=== PATIENT | male | born 1950 | race Caucasian/White ===

== ENCOUNTER 2019-06-03 16:19 | Observation (INO) | payer MEDICARE ==
[2019-06-03] MEDS ORDERED: HYDROcodone/Acetaminophen 5/325 mg Tablet PO PRN (18:03)
[2019-06-03] MEDS ORDERED: Acetaminophen 325 MG TAB PO PRN (18:03)
[2019-06-03] MEDS ORDERED: Senokot S 8.6-50 MG TAB PO PRN (18:03)
[2019-06-03 18:31] LABS: Troponin I Less than 0.010 ng/mL (< 0.028)
--- NOTE | 2019-06-03 18:52 | RAD ---
TWO VIEWS CHEST: 06/03/19 HISTORY: Pain. Hematuria. COMPARISON: 06/03/19 at 2:51 p.m. FINDINGS: Normal cardiac silhouette. Pulmonary vessels and hilum are normal. Costophrenic angles are clear. Pat jacob interstitial opacities in the lung parenchyma, without consolidation or mass. Mild hyperinflation . No pneumothorax or osseous abnormalities. IMPRESSION: 1. Previously suggested retrocardiac opacity is not appreciated on the current exam. 2. There is cardiomegaly. 3. Patchy interstitial opacities in the lung parenchyma are noted which may represent chronic ch adelaida. POS: PPP
[2019-06-03 21:23] LABS: Troponin I Less than 0.010 ng/mL (< 0.028)
[2019-06-03 23:05] VITALS: BMI 43.6
[2019-06-03] MEDS: Famotidine 20 MG TAB PO SCH (23:18)
[2019-06-03] MEDS ORDERED: Lorazepam 2 MG/ML VIAL SLOW IVP SCH (23:30)
[2019-06-04] MEDS ORDERED: Melatonin 3 MG TAB PO SCH (01:15)
[2019-06-04 06:18] LABS: #Basophils 0.1 thou/uL (0.0-0.2); #Eosinphils 0.1 thou/uL (0.0-0.7); #Lymphocytes 1.8 thou/uL (1.20-3.40); #Monocytes 0.7 thou/uL (0.11-0.59); #Neutrophils 5.6 thou/uL (1.40-6.50); %Eosinophils 1.7 % (0.0-10.0); %Lymphocytes 21.7 % (21.0-51.0); %Monocytes 8.8 % (0.0-10.0); %Neutrophils 66.8 % (42.0-75.0); Hemoglobin 15.6 g/dL (14.0-18.0); Mean Corpuscular HGB CONC 33.4 g/dL (32.0-36.0); Mean Corpuscular Hemoglobin 30.9 pg (27.0-31.0); Mean Corpuscular Volume 92.7 fL (78.0-98.0); Mean Platelet Volume 7.7 fL (7.4-10.4); Platelet Count 262 thou/uL (130-400); RBC Distribution Width 12.1 % (11.5-14.5); Red Blood Cell (RBC) Count 5.03 mill/uL (4.70-6.10); White Blood Cell (WBC) Count 8.4 thou/uL (4.8-10.8)
[2019-06-04 06:43] LABS: Anion Gap 14 mmol/L (10-20); BUN (Urea Nitrogen) 17 mg/dL (8.4-25.7); Calc. Creatinine Clearance 146 mL/min (70-130); Carbon Dioxide 24 mmol/L (23-31); Cardiac Risk 3.7 (Less than 4.5); Chloride 103 mmol/L (98-107); Cholesterol 140 mg/dl (< 200 Desired); Estimated GFR-MDRD 78; Glucose 110 mg/dL (80-115); HDL Cholesterol 38 mg/dL (>60 Neg Risk); LDL Cholesterol, Calculated 79 mg/dL; Potassium 4.6 mmol/L (3.5-5.1); Sodium 136 mmol/L (136-145); Triglycerides 116 mg/dL (Less than 150)
--- NOTE | 2019-06-04 07:08 | HP ---
PRIMARY CARE PHYSICIAN: Dr. Morrison. CHIEF COMPLAINT: Mental status changes. HISTORY OF PRESENT ILLNESS: Mr. South is a 68-year-old man, who went to the emergency room at [facility] today with chief complaint of altered mental status. reports the patient was talking on the phone with a friend and repeating the same thing over and over again. reports that the friend on the phone is a person that he talks too frequently, and reports that the friend was on the phone for 35 minutes, and the patient kept asking who are you and acted like he did not know who this person was. At that point, the friend thought about it for a minute and called him back, was still not quite himself, and so the friend called the at work and had her come home. reports that at breakfast this morning, he was fine. He came home, laid down, had a nap, and was like this when he woke up. He denies any pain, nausea, or dizziness. He actually denies knowing kind of much about this morning, which is very worrisome for him. reports that the patient has a history of hypertension, hyperlipidemia, and JM and he sleeps with a CPAP. reports other than the memory issues, the patient is at baseline mentation. The patient denied any weakness, tingling, or headache. Denies any weakness to one side or the other. Lab work in [facility] largely unremarkable, carbon dioxide 22, otherwise unremarkable. CT scan shows no acute intracranial abnormality, mild chronic small-vessel ischemic changes. Chest x-ray shows opacity with a retrocardiac left lower lobe silhouetting medial left hemidiaphragm, mild cardiomegaly without evidence of any cardiac decompensation. Chest x-ray, Radiology recommends a 2-view x-ray, which has been ordered. The patient was then transferred to [facility] ER for admission to our Stroke Unit. PAST MEDICAL HISTORY: High cholesterol, hypertension, JM. PAST SURGICAL HISTORY: He has had tonsils and adenoids removed. PAST PSYCHIATRIC HISTORY: None. SOCIAL HISTORY: Lives at home with his family. Denies any alcohol use, drug use. No smoking history. ALLERGIES: NONE. CURRENT MEDICATIONS: 1. Simvastatin 5 mg p.o. daily. 2. Amlodipine 10 mg p.o. daily. 3. Flonase 1 spray each nostril daily. 4. [place]-3 one capsule daily. These still need to be reconciled once the patient gets to the inpatient unit. REVIEW OF SYSTEMS: Reports some confusion, mental status changes, tingling in the feet. Reports some memory gaps for today. All other systems are reviewed and are negative unless mentioned in HPI. PHYSICAL EXAMINATION: VITAL SIGNS: Blood pressure is 138/74, pulse is 67, respiratory rate is 16, temperature is 98.4, pO2 sats are 96% on room air. CONSTITUTIONAL: The patient is oriented to person, place, and time. He appears nontoxic. HEENT: Head is atraumatic, normocephalic. Eyes; eyelids normal to inspection. Pupils are equal, round, and reactive to light. There is no nystagmus noted. ENT; mucous membranes are moist. Mouth exam is normal. NECK: Normal range of motion. Trachea is midline. RESPIRATORY/CHEST: No respiratory distress is noted. Breath sounds are clear. CARDIOVASCULAR: Regular rate and rhythm. Heart sounds are normal. ABDOMEN: Nontender. Bowel sounds are heard. BACK: Normal inspection. Normal range of motion. EXTREMITIES: Upper extremities; normal range of motion, motor strength is normal, sensation intact, radial pulses are normal. Lower extremities; normal inspection, normal range of motion, motor strength is normal, sensation intact, pedal pulses are equal. NEUROLOGIC: The patient can tell me where he is, can tell me his name and his date. SKIN: Warm, dry, normal in color. PSYCHIATRIC: He has a normal affect. ASSESSMENT AND PLAN: 1. Altered mental status, encephalopathy, confusion, which is somewhat resolving, although he does have holes in his memory from this morning. He does repeat and does not quite remember our conversations from previous minutes and does repeat questions. We will obtain an MRI without contrast, echocardiogram, carotid Dopplers. Check lipids, TSH in the morning. Recheck lab values. Give him aspirin. We will ask PT/OT to evaluate. 2. History of hypertension. We will continue home medications. 3. History of hyperlipidemia. We will restart home medications. Check lipids. 4. History of obstructive sleep apnea. Written an order to allow the patient to use his own CPAP. 5. Deep venous thrombosis and gastrointestinal prophylaxis have been started. 6. Hospital course dependent on clinical findings. Job ID: [id number]
--- NOTE | 2019-06-04 08:23 | ULT ---
EXAM: Carotid vascular duplex with color and spectral Doppler imaging: HISTORY: Confusion, TIA COMPARISON: None FINDINGS: Prominent visual plaque noted in both distal CCAs and proximal ICAs. Right ICA: PSV: 88 cm/s EDV: 17 cm/s ICA/CCA ratio: 0.8 Left ICA: PSV: 89 cm/s EDV: 23 cm/s ICA/CCA ratio: 0.8 Antegrade flow is seen in both vertebral arteries.. IMPRESSION: No evidence for hemodynamic stenosis. 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
[2019-06-04] MEDS ORDERED: Enoxaparin Sodium 40 MG/0.4 ML SYRINGE SC SCH (09:00)
[2019-06-04] MEDS: Famotidine 20 MG TAB PO SCH (09:01)
--- NOTE | 2019-06-04 14:11 | MRI ---
BRAIN MRI WITHOUT CONTRAST: 06/04/19 HISTORY: Confusion. Altered mental status. Evaluate for CVA. COMPARISON: None. FINDINGS: Calvarium has a normal T1 marrow signal intensity. Midline brain parenchymal structures are unremarka ble. No hemorrhage on the axial gradient echo sequence. Central arterial flow voids are maintained. Absent restricted diffusion. No parenchymal mass, mass effect, or midline shift. Brain volume is age appropriate. Cortical hoffman-white matter differentiation is preserved. No evidence of hydrocephalus. Scattered T2 and FLAIR white matter hyperintensities due to chronic sma ll vessel ischemic change. Adequate aeration of the ethmoid air cells and sphenoid sinuses. Partial opacification of the bilater al maxillary sinuses. Partial opacification of the mastoid air cells. IMPRESSION: 1. Absent restricted diffusion. No acute infarct. 2. Brain volume, age appropriate. 3. Minimal chronic small vessel ischemic changes of the white matter. POS: TPC
[2019-06-04 16:23] VITALS: BP 143/76; TEMP 98.2
[2019-06-04] MEDS ORDERED: Amlodipine 5 MG TAB PO SCH (21:00)
[2019-06-04] MEDS ORDERED: Fish Oil 1,000 MG CAP PO SCH (21:00)
[2019-06-04] MEDS ORDERED: Simvastatin 20 MG TAB PO SCH (21:00)
[2019-06-04] MEDS ORDERED: Atorvastatin Calcium 10 MG TAB PO SCH (21:00)
--- NOTE | 2019-06-05 15:23 | DIS ---
DATE OF ADMISSION: 06/03/2019 DATE OF DISCHARGE: 06/04/2019 DISCHARGE DIAGNOSES: 1. Acute encephalopathy of unknown etiology. 2. History of hypertension. 3. History of hyperlipidemia. 4. History of obstructive sleep apnea. 5. Probable transient ischemic attack. HISTORY OF PRESENT ILLNESS: This patient is a 68-year-old male with the above-mentioned past medical history who was in his usual state of health until he had gone to breakfast with some friends, subsequently returned home and was on the phone with another friend, at which time, he started repeating himself and apparently was not making good sense. His was called and the patient was subsequently brought to the hospital. The patient reported he did not have much recollection of that whole time. He is unaware of any new exposures. His exam was generally unremarkable as were labs. The patient was subsequently placed on observation on telemetry, had an MRI of the brain and carotid Dopplers, all of which were unremarkable. Lab workup including troponins and TSH were unremarkable. The patient's symptoms completely resolved and he was completely back to his baseline. PHYSICAL EXAMINATION: VITAL SIGNS: On the day of discharge, temperature was 98.2, pulse 68, respirations 17, O2 saturation 97% on room air, BP was 143/76. NEUROLOGICAL: The patient was awake and alert. He was fully cognitively intact. He had no neurologic deficits. HEART: Regular rate and rhythm. LUNGS: Clear. ABDOMEN: Benign. EXTREMITIES: No edema. DISPOSITION: The patient is discharged to home. DISCHARGE INSTRUCTIONS: He is to have a heart healthy diet and his activity level is as tolerated. He was to take aspirin 81 mg p.o. daily. He will continue with simvastatin, fish oil, amlodipine. He is to follow up with Dr. Morrison and he can return to the hospital at anytime should he have need to do so. Job ID: [id number]
== END 2019-06-04 18:54 | disposition home or self-care (01) ==
LOC: ERS 16:19 → ERHOLD 17:56 → 2SE 22:21
PROVIDERS: ADMIT Internal Medicine; ATTEND Internal Medicine
DX: G93.40 Encephalopathy, unspecified (principal); I12.9 Hypertensive chronic kidney disease with stage 1 through stage 4 chronic kidney disease, or unspecified chronic kidney disease; N18.9 Chronic kidney disease, unspecified; E78.5 Hyperlipidemia, unspecified; G47.33 Obstructive sleep apnea (adult) (pediatric); Z79.899 Other long term (current) drug therapy; Z99.89 Dependence on other enabling machines and devices
CPT/HCPCS: 36415; 70551; 71046; 80048; 80061; 84443; 85025; 93880; 96372; 96374; 99285; G0378; J1650; J2060

== ENCOUNTER 2019-06-19 14:46 | Outpatient (CLI) | payer MEDICARE | END 2019-06-19 14:47 | disposition home or self-care (01) | LOC: ULT 14:46 | PROVIDERS: ATTEND Family Medicine | DX: G45.9 Transient cerebral ischemic attack, unspecified (principal); I34.0 Nonrheumatic mitral (valve) insufficiency | CPT/HCPCS: 93306 ==

== ENCOUNTER 2020-12-28 01:54 | Inpatient (IN) | payer MEDICARE ==
[2020-12-28] MEDS ORDERED: Ondansetron PF 4 MG/2 ML Vial IVP PRN (04:45)
[2020-12-28] MEDS ORDERED: Sodium Chloride 0.9% 1,000 ML IV SCH (04:45)
[2020-12-28 05:23] VITALS: BMI 42.0
[2020-12-28] MEDS: Famotidine/PF 20 mg/2ml Vial SLOW IVP SCH ×2 (08:54→20:34)
[2020-12-28] MEDS: Enoxaparin Sodium 40 MG/0.4 ML SYRINGE SC SCH (08:54)
[2020-12-28] MEDS ORDERED: Lactated Ringer's 1,000 ML IV SCH (09:00)
[2020-12-28 09:18] LABS: SARS-CoV-2 PCR by NAA Not Detected (NotDetected)
[2020-12-28 09:22] LABS: #Eosinphils 0.1 thou/uL (0.0-0.7); #Lymphocytes 1.8 thou/uL (1.20-3.40); #Monocytes 0.9 thou/uL (0.11-0.59); #Neutrophils 8.6 thou/uL (1.40-6.50); %Basophils 0.2 % (0.0-1.0); %Eosinophils 0.5 % (0.0-10.0); %Lymphocytes 15.4 % (21.0-51.0); %Monocytes 8.2 % (0.0-10.0); %Neutrophils 75.7 % (42.0-75.0); Hemoglobin 16.2 g/dL (14.0-18.0); Mean Corpuscular HGB CONC 34.2 g/dL (32.0-36.0); Mean Corpuscular Volume 93.8 fL (78.0-98.0); Mean Platelet Volume 8.4 fL (7.4-10.4); Platelet Count 224 thou/uL (130-400); RBC Distribution Width 12.1 % (11.5-14.5); Red Blood Cell (RBC) Count 5.05 mill/uL (4.70-6.10); White Blood Cell (WBC) Count 11.4 thou/uL (4.8-10.8)
[2020-12-28 09:41] LABS: Anion Gap 13 mmol/L (10-20); BUN (Urea Nitrogen) 15 mg/dL (8.4-25.7); Calc. Creatinine Clearance 138 mL/min (70-130); Calcium 9.4 mg/dL (7.8-10.44); Carbon Dioxide 23 mmol/L (23-31); Chloride 107 mmol/L (98-107); Glucose 106 mg/dL (83-110); Sodium 140 mmol/L (136-145)
[2020-12-28] MEDS ORDERED: Morphine 2 MG/ML VIAL SLOW IVP PRN (10:01)
[2020-12-28] MEDS ORDERED: Morphine 4 MG/ML VIAL SLOW IVP PRN (10:01)
[2020-12-28] MEDS ORDERED: Ketorolac Tromethamine 30 MG/ML VIAL IVP SCH (10:15)
[2020-12-28] MEDS: Potassium Chloride 20 MEQ in Lactated Ringer's 1,000 ML IV SCH ×2 (10:26→16:55)
[2020-12-28] MEDS ORDERED: hydrALAZINE 20 MG/ML VIAL SLOW IVP PRN (12:00)
[2020-12-28] MEDS ORDERED: Potassium Chloride 10 MEQ in Premix Bag 1 BAG IVPB SCH (12:15)
[2020-12-28] MEDS ORDERED: Fentanyl 100 MCG/2 ML VIAL ONE ×2 (13:47→14:08)
[2020-12-28] MEDS ORDERED: Ketamine 50 MG/ML (10ML VIAL) ONE (13:51)
[2020-12-28] MEDS ORDERED: SUGAMMADEX SODIUM 500 MG/5 ML VIAL ONE (13:51)
[2020-12-28] MEDS ORDERED: Rocuronium Bromide 10 MG/ML (10ML VIAL) ONE (14:04)
[2020-12-28] MEDS ORDERED: Lidocaine 1% PF 5 ML VIAL ONE (14:04)
[2020-12-28] MEDS ORDERED: Ondansetron PF 4 MG/2 ML Vial ONE (14:04)
[2020-12-28] MEDS ORDERED: Dexamethasone 20 MG/5 ML VIAL ONE (14:04)
[2020-12-28] MEDS ORDERED: Phenylephrine 10 MG/ML VIAL ONE (14:08)
[2020-12-28] MEDS ORDERED: Magnesium Citrate 300 ML BOT PO SCH ×2 (14:44→20:00)
[2020-12-28] MEDS ORDERED: MEROPENEM 1 GM/50 ML 1 GM in Premix Bag 1 BAG IVPB SCH (15:30)
[2020-12-28] MEDS: Gabapentin 300 MG CAP PO SCH (20:34)
[2020-12-29] MEDS: Potassium Chloride 20 MEQ in Lactated Ringer's 1,000 ML IV SCH ×3 (00:30→17:54)
[2020-12-29 05:38] LABS: #Lymphocytes 1.6 thou/uL (1.20-3.40); #Monocytes 0.7 thou/uL (0.11-0.59); #Neutrophils 8.2 thou/uL (1.40-6.50); %Eosinophils 0.1 % (0.0-10.0); %Lymphocytes 15.2 % (21.0-51.0); %Monocytes 6.5 % (0.0-10.0); %Neutrophils 78.1 % (42.0-75.0); Hemoglobin 15.6 g/dL (14.0-18.0); Mean Corpuscular HGB CONC 32.9 g/dL (32.0-36.0); Mean Corpuscular Hemoglobin 30.9 pg (27.0-31.0); Mean Corpuscular Volume 93.9 fL (78.0-98.0); Mean Platelet Volume 8.3 fL (7.4-10.4); Platelet Count 256 thou/uL (130-400); RBC Distribution Width 12.1 % (11.5-14.5); Red Blood Cell (RBC) Count 5.07 mill/uL (4.70-6.10); White Blood Cell (WBC) Count 10.4 thou/uL (4.8-10.8)
[2020-12-29 06:06] LABS: ALT (SGPT) 31 U/L (8-55); AST (SGOT) 24 U/L (5-34); Alkaline Phosphatase 80 U/L (40-110); Anion Gap 13 mmol/L (10-20); BUN (Urea Nitrogen) 12 mg/dL (8.4-25.7); Bilirubin, Total 0.6 mg/dL (0.2-1.2); Calc. Creatinine Clearance 139 mL/min (70-130); Calcium 9.5 mg/dL (7.8-10.44); Carbon Dioxide 26 mmol/L (23-31); Chloride 105 mmol/L (98-107); Globulin 2.8 g/dL (2.4-3.5); Glucose 109 mg/dL (83-110); Potassium 4.4 mmol/L (3.5-5.1); Protein, Total 6.8 g/dL (5.8-8.1); Sodium 140 mmol/L (136-145)
[2020-12-29] MEDS: Famotidine/PF 20 mg/2ml Vial SLOW IVP SCH ×2 (08:50→22:39)
[2020-12-29] MEDS: Gabapentin 300 MG CAP PO SCH ×3 (08:50→22:38)
[2020-12-29] MEDS: Enoxaparin Sodium 40 MG/0.4 ML SYRINGE SC SCH (08:51)
[2020-12-29] MEDS ORDERED: Fentanyl 250 MCG/5 ML VIAL ONE (12:56)
[2020-12-29] MEDS ORDERED: Lidocaine 1% w/Epinephrine 1:100K 20 ML VIAL ONE (13:05)
[2020-12-29] MEDS ORDERED: Bupivacaine 0.25% HCL 30 ML VIAL ONE (13:05)
[2020-12-29] MEDS ORDERED: Lidocaine 1% PF 5 ML VIAL ONE ×2 (13:57)
[2020-12-29] MEDS ORDERED: Succinylcholine 200 MG/10 ml SYRINGE FS ONE (13:57)
[2020-12-29] MEDS ORDERED: Ketorolac Tromethamine 30 MG/ML VIAL ONE (13:57)
[2020-12-29] MEDS ORDERED: Dexamethasone 20 MG/5 ML VIAL ONE (13:57)
[2020-12-29] MEDS ORDERED: Ropivacaine 0.5% HCl/PF (150 MG/30 ML VIAL) ONE (13:57)
[2020-12-29] MEDS ORDERED: PROPOFOL 200 MG/20 ML VIAL ONE (13:57)
[2020-12-29] MEDS ORDERED: ePHEDrine Sulfate 50 MG/10 ML VIAL ONE (13:57)
[2020-12-29] MEDS ORDERED: Rocuronium Bromide 10 MG/ML (10ML VIAL) ONE (13:57)
[2020-12-29] MEDS ORDERED: Albuterol Sulfate HFA (OR ONLY) ONE (13:57)
[2020-12-29] MEDS ORDERED: Ondansetron PF 4 MG/2 ML Vial ONE (13:57)
[2020-12-29] MEDS ORDERED: Glycopyrrolate 0.2 MG/ML 5 ML SYRINGE ONE (13:57)
[2020-12-29] MEDS ORDERED: SUGAMMADEX SODIUM 500 MG/5 ML VIAL ONE (15:42)
[2020-12-29] MEDS ORDERED: Morphine 4 MG/ML VIAL SLOW IVP PRN (16:57)
[2020-12-29] MEDS ORDERED: Ondansetron PF 4 MG/2 ML Vial IVP PRN (16:59)
[2020-12-29] MEDS ORDERED: Ondansetron ODT 8 MG TAB SL PRN (16:59)
[2020-12-29] MEDS ORDERED: Ondansetron ODT 4 MG TAB PO PRN (16:59)
[2020-12-29] MEDS: Morphine 4 MG/ML VIAL SLOW IVP PRN (18:17)
[2020-12-29] MEDS: Amlodipine 5 MG TAB PO SCH (22:39)
[2020-12-29] MEDS: Aspirin 81 mg Enteric Coated Tablet PO SCH (22:39)
[2020-12-30] MEDS: Potassium Chloride 20 MEQ in Lactated Ringer's 1,000 ML IV SCH ×3 (00:17→17:24)
[2020-12-30 06:13] LABS: Band 22 % (5-11); Lymphocytes 16 % (21-51); MDiff Complete? YES; Mean Corpuscular Hemoglobin 30.2 pg (27.0-31.0); Mean Corpuscular Volume 94.5 fL (78.0-98.0); Mean Platelet Volume 10.2 fL (7.4-10.4); Monocytes 5 % (0-10); Neutrophil 56 % (42-75); Platelet Count 257 thou/uL (130-400); Platelet Morphology Comment Appears Adequate; RBC Distribution Width 12.3 % (11.5-14.5); Reactive Lymphocytes 1 % (0-10); Red Blood Cell (RBC) Count 4.95 mill/uL (4.70-6.10); White Blood Cell (WBC) Count 11.5 thou/uL (4.8-10.8)
[2020-12-30] MEDS: Gabapentin 300 MG CAP PO SCH ×3 (09:08→20:13)
[2020-12-30] MEDS: Famotidine/PF 20 mg/2ml Vial SLOW IVP SCH ×2 (09:08→20:13)
[2020-12-30] MEDS: Enoxaparin Sodium 40 MG/0.4 ML SYRINGE SC SCH (09:09)
[2020-12-30 12:36] LABS: Chloride 104 mmol/L (98-107); Potassium 4.1 mmol/L (3.5-5.1); Sodium 139 mmol/L (136-145)
[2020-12-30 12:37] LABS: Glucose 102 mg/dL (83-110)
[2020-12-30 12:39] LABS: Anion Gap 16 mmol/L (10-20); Carbon Dioxide 23 mmol/L (23-31)
[2020-12-30 12:40] LABS: Calc. Creatinine Clearance 124 mL/min (70-130)
[2020-12-30 12:41] LABS: BUN (Urea Nitrogen) 18 mg/dL (8.4-25.7)
[2020-12-30] MEDS: Ketorolac Tromethamine 30 MG/ML VIAL IVP PRN (14:38)
[2020-12-30] MEDS: Aspirin 81 mg Enteric Coated Tablet PO SCH (20:13)
[2020-12-30] MEDS: Amlodipine 5 MG TAB PO SCH (20:13)
[2020-12-31] MEDS: Potassium Chloride 20 MEQ in Lactated Ringer's 1,000 ML IV SCH ×3 (01:58→22:01)
[2020-12-31] MEDS: Morphine 2 MG/ML VIAL SLOW IVP PRN (04:08)
[2020-12-31 08:06] LABS: #Basophils 0.1 thou/uL (0.0-0.2); #Lymphocytes 1.7 thou/uL (1.20-3.40); #Monocytes 0.9 thou/uL (0.11-0.59); #Neutrophils 13.6 thou/uL (1.40-6.50); %Basophils 0.4 % (0.0-1.0); %Eosinophils 0.2 % (0.0-10.0); %Lymphocytes 10.5 % (21.0-51.0); %Monocytes 5.7 % (0.0-10.0); %Neutrophils 83.2 % (42.0-75.0); Hemoglobin 15.8 g/dL (14.0-18.0); Mean Corpuscular HGB CONC 32.8 g/dL (32.0-36.0); Mean Corpuscular Hemoglobin 31.4 pg (27.0-31.0); Mean Corpuscular Volume 95.6 fL (78.0-98.0); Mean Platelet Volume 8.3 fL (7.4-10.4); Platelet Count 223 thou/uL (130-400); RBC Distribution Width 12.1 % (11.5-14.5); Red Blood Cell (RBC) Count 5.03 mill/uL (4.70-6.10); White Blood Cell (WBC) Count 16.3 thou/uL (4.8-10.8)
[2020-12-31 08:26] LABS: Anion Gap 19 mmol/L (10-20); BUN (Urea Nitrogen) 16 mg/dL (8.4-25.7); Calc. Creatinine Clearance 139 mL/min (70-130); Calcium 9.2 mg/dL (7.8-10.44); Carbon Dioxide 19 mmol/L (23-31); Chloride 103 mmol/L (98-107); Glucose 100 mg/dL (83-110); Sodium 137 mmol/L (136-145)
[2020-12-31] MEDS: Gabapentin 300 MG CAP PO SCH ×3 (08:59→20:40)
[2020-12-31] MEDS: Famotidine/PF 20 mg/2ml Vial SLOW IVP SCH ×2 (09:01→20:41)
[2020-12-31] MEDS: Enoxaparin Sodium 40 MG/0.4 ML SYRINGE SC SCH (09:02)
[2020-12-31] MEDS: Morphine 4 MG/ML VIAL SLOW IVP PRN (11:27)
[2020-12-31] MEDS: Amlodipine 5 MG TAB PO SCH (20:40)
[2020-12-31] MEDS: Aspirin 81 mg Enteric Coated Tablet PO SCH (20:40)
[2020-12-31] MEDS: Ketorolac Tromethamine 30 MG/ML VIAL IVP PRN (22:04)
[2021-01-01 05:18] LABS: #Eosinphils 0.3 thou/uL (0.0-0.7); #Lymphocytes 1.5 thou/uL (1.20-3.40); #Monocytes 0.9 thou/uL (0.11-0.59); #Neutrophils 10.1 thou/uL (1.40-6.50); %Basophils 0.3 % (0.0-1.0); %Eosinophils 2.4 % (0.0-10.0); %Lymphocytes 11.5 % (21.0-51.0); %Monocytes 7.3 % (0.0-10.0); %Neutrophils 78.6 % (42.0-75.0); Hemoglobin 15.4 g/dL (14.0-18.0); Mean Corpuscular HGB CONC 33.7 g/dL (32.0-36.0); Mean Corpuscular Hemoglobin 32.1 pg (27.0-31.0); Mean Corpuscular Volume 95.3 fL (78.0-98.0); Mean Platelet Volume 8.1 fL (7.4-10.4); Platelet Count 211 thou/uL (130-400); RBC Distribution Width 12.1 % (11.5-14.5); White Blood Cell (WBC) Count 12.9 thou/uL (4.8-10.8)
[2021-01-01 05:39] LABS: Anion Gap 14 mmol/L (10-20); BUN (Urea Nitrogen) 18 mg/dL (8.4-25.7); Calc. Creatinine Clearance 158 mL/min (70-130); Calcium 9.3 mg/dL (7.8-10.44); Carbon Dioxide 24 mmol/L (23-31); Chloride 104 mmol/L (98-107); Glucose 100 mg/dL (83-110); Potassium 3.9 mmol/L (3.5-5.1); Sodium 138 mmol/L (136-145)
[2021-01-01] MEDS: Potassium Chloride 20 MEQ in Lactated Ringer's 1,000 ML IV SCH ×3 (06:43→16:26)
[2021-01-01] MEDS: Gabapentin 300 MG CAP PO SCH ×3 (09:18→20:17)
[2021-01-01] MEDS: Famotidine/PF 20 mg/2ml Vial SLOW IVP SCH (09:18)
[2021-01-01] MEDS: Enoxaparin Sodium 40 MG/0.4 ML SYRINGE SC SCH (09:18)
[2021-01-01] MEDS: Ketorolac Tromethamine 30 MG/ML VIAL IVP PRN (16:25)
[2021-01-01] MEDS: Aspirin 81 mg Enteric Coated Tablet PO SCH (20:17)
[2021-01-01] MEDS: Amlodipine 5 MG TAB PO SCH (20:17)
[2021-01-01 22:49] LABS: Bacteria/HPF None Seen HPF (None Seen); Bilirubin Negative (Negative); Blood, Urine 1+ (Negative); Clarity Clear (Clear); Glucose, Urine (Dipstick) Normal (Negative); Ketone, Urine 20 mg/dL (Negative); Leukocyte Negative Leu/uL (Negative); Nitrite Negative (Negative); Protein, Urine (Dipstick) 50 mg/dL (Neg-Trace); RBC/HPF 0-3 HPF (0-3); Specific Gravity, Urine 1.025 (1.002-1.036); Squamous Epithelial None Seen HPF (0-3); Urobilinogen Normal mg/dL (Less than 2); WBC/HPF 0-3 HPF (0-3)
[2021-01-02] MEDS: Potassium Chloride 20 MEQ in Lactated Ringer's 1,000 ML IV SCH ×3 (01:27→10:13)
[2021-01-02 05:22] LABS: #Eosinphils 0.2 thou/uL (0.0-0.7); #Neutrophils 9.6 thou/uL (1.40-6.50); %Basophils 0.2 % (0.0-1.0); %Eosinophils 1.9 % (0.0-10.0); %Lymphocytes 8.6 % (21.0-51.0); %Monocytes 8.1 % (0.0-10.0); %Neutrophils 81.2 % (42.0-75.0); Mean Corpuscular HGB CONC 30.5 g/dL (32.0-36.0); Mean Platelet Volume 8.6 fL (7.4-10.4); Platelet Count 260 thou/uL (130-400); RBC Distribution Width 12.4 % (11.5-14.5); Red Blood Cell (RBC) Count 5.18 mill/uL (4.70-6.10); White Blood Cell (WBC) Count 11.8 thou/uL (4.8-10.8)
[2021-01-02 05:47] LABS: Anion Gap 15 mmol/L (10-20); BUN (Urea Nitrogen) 15 mg/dL (8.4-25.7); Calc. Creatinine Clearance 170 mL/min (70-130); Calcium 9.2 mg/dL (7.8-10.44); Carbon Dioxide 23 mmol/L (23-31); Chloride 104 mmol/L (98-107); Glucose 119 mg/dL (83-110); Potassium 3.5 mmol/L (3.5-5.1); Sodium 138 mmol/L (136-145)
[2021-01-02] MEDS: Pantoprazole 40 MG VIAL IVP SCH (09:00)
[2021-01-02] MEDS: Enoxaparin Sodium 40 MG/0.4 ML SYRINGE SC SCH (09:03)
[2021-01-02] MEDS: Ketorolac Tromethamine 30 MG/ML VIAL IVP PRN (09:03)
[2021-01-02] MEDS: Gabapentin 300 MG CAP PO SCH ×3 (09:05→20:00)
[2021-01-02] MEDS: Piperacillin/Tazobactam 3.375 GM in Sodium Chloride 0.9% 100 ML IVPB SCH ×3 (12:10→23:59)
[2021-01-02] MEDS: Morphine 2 MG/ML VIAL SLOW IVP PRN (12:11)
[2021-01-02] MEDS: Benzonatate 100 MG CAP PO SCH ×2 (16:00→20:01)
[2021-01-02] MEDS: Morphine 4 MG/ML VIAL SLOW IVP PRN (18:36)
[2021-01-02] MEDS: guaiFENesin ER 600 MG TAB PO SCH (20:01)
[2021-01-02] MEDS: Aspirin 81 mg Enteric Coated Tablet PO SCH (20:01)
[2021-01-02] MEDS: Amlodipine 5 MG TAB PO SCH (20:01)
[2021-01-03] MEDS: Potassium Chloride 20 MEQ in Lactated Ringer's 1,000 ML IV SCH ×4 (00:02→23:30)
[2021-01-03] MEDS: Piperacillin/Tazobactam 3.375 GM in Sodium Chloride 0.9% 100 ML IVPB SCH ×2 (06:06→13:30)
[2021-01-03 07:13] LABS: Anion Gap 18 mmol/L (10-20); BUN (Urea Nitrogen) 19 mg/dL (8.4-25.7); Calc. Creatinine Clearance 120 mL/min (70-130); Calcium 9.7 mg/dL (7.8-10.44); Carbon Dioxide 21 mmol/L (23-31); Chloride 104 mmol/L (98-107); Glucose 150 mg/dL (83-110); Potassium 3.7 mmol/L (3.5-5.1); Sodium 139 mmol/L (136-145)
[2021-01-03 07:29] LABS: #Eosinphils 0.1 thou/uL (0.0-0.7); #Lymphocytes 1.6 thou/uL (1.20-3.40); #Monocytes 0.8 thou/uL (0.11-0.59); #Neutrophils 8.2 thou/uL (1.40-6.50); %Eosinophils 0.6 % (0.0-10.0); %Lymphocytes 14.7 % (21.0-51.0); %Monocytes 7.6 % (0.0-10.0); %Neutrophils 77.1 % (42.0-75.0); Hemoglobin 15.8 g/dL (14.0-18.0); Mean Corpuscular Hemoglobin 28.7 pg (27.0-31.0); Mean Corpuscular Volume 95.9 fL (78.0-98.0); Mean Platelet Volume 8.6 fL (7.4-10.4); Platelet Count 342 thou/uL (130-400); RBC Distribution Width 12.5 % (11.5-14.5); White Blood Cell (WBC) Count 10.6 thou/uL (4.8-10.8)
[2021-01-03] MEDS: Gabapentin 300 MG CAP PO SCH (08:13)
[2021-01-03] MEDS: guaiFENesin ER 600 MG TAB PO SCH ×2 (08:14→20:28)
[2021-01-03] MEDS: Benzonatate 100 MG CAP PO SCH ×3 (08:14→20:28)
[2021-01-03] MEDS: Pantoprazole 40 MG VIAL IVP SCH (08:14)
[2021-01-03] MEDS: Enoxaparin Sodium 40 MG/0.4 ML SYRINGE SC SCH (08:15)
[2021-01-03 08:40] LABS: MDiff Complete? YES; Platelet Morphology Comment Appears Adequate; Polychromasia SLIGHT = 2-3 cells (100X) (0-2/hpf)
[2021-01-03 08:41] LABS: Anion Gap 12 mmol/L (10-20); BUN (Urea Nitrogen) 17 mg/dL (8.4-25.7); Calc. Creatinine Clearance 135 mL/min (70-130); Calcium 9.1 mg/dL (7.8-10.44); Carbon Dioxide 26 mmol/L (23-31); Chloride 105 mmol/L (98-107); Glucose 126 mg/dL (83-110); Potassium 3.6 mmol/L (3.5-5.1); Sodium 139 mmol/L (136-145)
[2021-01-03] MEDS ORDERED: Meropenem 2 GM in Sodium Chloride 0.9% 100 ML IVPB SCH (09:00)
[2021-01-03] MEDS ORDERED: Bupivacaine PF 0.5% 30 ML VIAL ONE ×2 (10:18→10:19)
[2021-01-03] MEDS ORDERED: Fentanyl 100 MCG/2 ML VIAL ONE ×3 (10:19→14:41)
[2021-01-03] MEDS ORDERED: Midazolam HCl 2 mg/2 ml Vial ONE (10:19)
[2021-01-03] MEDS ORDERED: EPINEPHrine 1 MG/ML AMP ONE (10:19)
[2021-01-03] MEDS ORDERED: Fentanyl 250 MCG/5 ML VIAL ONE (10:33)
[2021-01-03] MEDS ORDERED: Phenylephrine 10 MG/ML VIAL ONE (10:34)
[2021-01-03] MEDS ORDERED: Rocuronium Bromide 10 MG/ML (10ML VIAL) ONE (11:23)
[2021-01-03] MEDS ORDERED: PROPOFOL 200 MG/20 ML VIAL ONE (11:23)
[2021-01-03] MEDS ORDERED: Bupivacaine HCl 0.5%/Epinephrine 1:200,000/PF 30 ml Vial ONE (11:23)
[2021-01-03] MEDS ORDERED: Lidocaine 1% PF 5 ML VIAL ONE (11:23)
[2021-01-03] MEDS ORDERED: Ondansetron PF 4 MG/2 ML Vial ONE (11:23)
[2021-01-03] MEDS ORDERED: Dexamethasone 20 MG/5 ML VIAL ONE (11:23)
[2021-01-03] MEDS ORDERED: ePHEDrine Sulfate 50 MG/10 ML VIAL ONE (11:23)
[2021-01-03] MEDS ORDERED: Succinylcholine 200 MG/10 ml SYRINGE FS ONE (11:23)
[2021-01-03] MEDS ORDERED: Glycopyrrolate 0.2 MG/ML 5 ML SYRINGE ONE (11:23)
[2021-01-03] MEDS ORDERED: PHENYLEPHRINE-NS 100 MCG/ML 10 ML SYRINGE ONE (11:23)
[2021-01-03] MEDS ORDERED: Sodium Chloride 0.9% 20 ML ONE (12:34)
[2021-01-03] MEDS ORDERED: HYDROmorphone 2 MG/ML VIAL SLOW IVP PRN (13:25)
[2021-01-03] MEDS ORDERED: Promethazine HCl 25 MG/ML VIAL IM PRN (13:25)
[2021-01-03] MEDS ORDERED: Promethazine HCl 25 MG/ML VIAL SLOW IVP PRN (13:25)
[2021-01-03] MEDS ORDERED: Ondansetron HCl/PF 4 MG/2 ML Vial IVP PRN (13:25)
[2021-01-03] MEDS ORDERED: Ketorolac Tromethamine 30 MG/ML VIAL IVP PRN (14:51)
[2021-01-03] MEDS ORDERED: Ketorolac Tromethamine 30 MG/ML VIAL IVP SCH (15:00)
[2021-01-03] MEDS: Piperacillin/Tazobactam 4.5 GM in Sodium Chloride 0.9% 100 ML IVPB SCH ×2 (17:59→23:10)
[2021-01-03] MEDS: Morphine 4 MG/ML VIAL SLOW IVP PRN (20:29)
[2021-01-04] MEDS ORDERED: Adenosine 6 MG/2 ML VIAL ONE
[2021-01-04] MEDS: Morphine 4 MG/ML VIAL SLOW IVP PRN ×2 (03:13→15:39)
[2021-01-04 03:29] LABS: #Eosinphils 0.1 thou/uL (0.0-0.7); #Lymphocytes 1.2 thou/uL (1.20-3.40); #Monocytes 0.9 thou/uL (0.11-0.59); #Neutrophils 6.5 thou/uL (1.40-6.50); %Basophils 0.3 % (0.0-1.0); %Eosinophils 1.1 % (0.0-10.0); %Lymphocytes 13.3 % (21.0-51.0); %Monocytes 10.1 % (0.0-10.0); %Neutrophils 75.2 % (42.0-75.0); Hemoglobin 14.7 g/dL (14.0-18.0); Mean Corpuscular HGB CONC 32.2 g/dL (32.0-36.0); Mean Corpuscular Hemoglobin 30.7 pg (27.0-31.0); Mean Corpuscular Volume 95.3 fL (78.0-98.0); Mean Platelet Volume 8.4 fL (7.4-10.4); Platelet Count 276 thou/uL (130-400); RBC Distribution Width 12.3 % (11.5-14.5); White Blood Cell (WBC) Count 8.7 thou/uL (4.8-10.8)
[2021-01-04 03:37] LABS: Phosphorus 2.6 mg/dL (2.3-4.7)
[2021-01-04 03:39] LABS: Anion Gap 15 mmol/L (10-20); BUN (Urea Nitrogen) 18 mg/dL (8.4-25.7); Calc. Creatinine Clearance 154 mL/min (70-130); Calcium 8.7 mg/dL (7.8-10.44); Carbon Dioxide 24 mmol/L (23-31); Chloride 105 mmol/L (98-107); Glucose 117 mg/dL (83-110); Potassium 3.7 mmol/L (3.5-5.1); Sodium 140 mmol/L (136-145)
[2021-01-04 05:54] LABS: Troponin I 0.013 ng/mL (< 0.028)
[2021-01-04] MEDS: Piperacillin/Tazobactam 4.5 GM in Sodium Chloride 0.9% 100 ML IVPB SCH ×4 (07:28→23:17)
[2021-01-04] MEDS: Potassium Chloride 20 MEQ in Lactated Ringer's 1,000 ML IV SCH ×3 (07:28→23:52)
[2021-01-04 08:48] LABS: Lactic Acid 1.1 mmol/L (0.5-2.2)
[2021-01-04] MEDS: Pantoprazole 40 MG VIAL IVP SCH (09:02)
[2021-01-04] MEDS: guaiFENesin ER 600 MG TAB PO SCH ×2 (09:02→21:27)
[2021-01-04] MEDS: Benzonatate 100 MG CAP PO SCH ×2 (09:02→15:39)
[2021-01-04] MEDS: Enoxaparin Sodium 40 MG/0.4 ML SYRINGE SC SCH (09:03)
[2021-01-04] MEDS ORDERED: Amlodipine 5 MG TAB PO SCH (23:00)
[2021-01-04] MEDS ORDERED: Simvastatin 5 MG TAB PO SCH (23:15)
[2021-01-05] MEDS: Piperacillin/Tazobactam 4.5 GM in Sodium Chloride 0.9% 100 ML IVPB SCH ×4 (05:39→23:37)
[2021-01-05 05:59] LABS: #Eosinphils 0.7 thou/uL (0.0-0.7); #Lymphocytes 1.4 thou/uL (1.20-3.40); #Monocytes 0.9 thou/uL (0.11-0.59); #Neutrophils 7.4 thou/uL (1.40-6.50); %Basophils 0.3 % (0.0-1.0); %Eosinophils 6.6 % (0.0-10.0); %Neutrophils 71.1 % (42.0-75.0); Mean Corpuscular HGB CONC 30.2 g/dL (32.0-36.0); Mean Corpuscular Hemoglobin 29.1 pg (27.0-31.0); Mean Corpuscular Volume 96.2 fL (78.0-98.0); Mean Platelet Volume 7.8 fL (7.4-10.4); Platelet Count 300 thou/uL (130-400); RBC Distribution Width 12.2 % (11.5-14.5); Red Blood Cell (RBC) Count 4.47 mill/uL (4.70-6.10); White Blood Cell (WBC) Count 10.4 thou/uL (4.8-10.8)
[2021-01-05 06:20] LABS: Anion Gap 14 mmol/L (10-20); BUN (Urea Nitrogen) 15 mg/dL (8.4-25.7); Calc. Creatinine Clearance 170 mL/min (70-130); Calcium 8.8 mg/dL (7.8-10.44); Carbon Dioxide 25 mmol/L (23-31); Chloride 104 mmol/L (98-107); Glucose 100 mg/dL (83-110); Potassium 3.9 mmol/L (3.5-5.1); Sodium 139 mmol/L (136-145)
[2021-01-05] MEDS: Enoxaparin Sodium 40 MG/0.4 ML SYRINGE SC SCH (07:45)
[2021-01-05] MEDS: guaiFENesin ER 600 MG TAB PO SCH ×2 (07:45→21:22)
[2021-01-05] MEDS: Pantoprazole 40 MG VIAL IVP SCH (07:46)
[2021-01-05] MEDS: Potassium Chloride 20 MEQ in Lactated Ringer's 1,000 ML IV SCH (07:55)
[2021-01-05] MEDS: D5W-AA 4.25% with LYTES 1,000 ML IV SCH (18:50)
[2021-01-05] MEDS: Morphine 4 MG/ML VIAL SLOW IVP PRN (21:15)
[2021-01-05] MEDS ORDERED: Amlodipine 5 MG TAB PO SCH (21:30)
[2021-01-05] MEDS ORDERED: Simvastatin 5 MG TAB PO SCH (21:45)
[2021-01-05] MEDS ORDERED: cloNIDine 0.1 MG TAB PO PRN (21:51)
[2021-01-05] MEDS ORDERED: Fluticasone Propionate Nasal Spray 16 gm Bottle NASAL SCH (22:00)
[2021-01-06] MEDS: D5W-AA 4.25% with LYTES 1,000 ML IV SCH (04:03)
[2021-01-06 04:57] LABS: #Basophils 0.1 thou/uL (0.0-0.2); #Eosinphils 0.6 thou/uL (0.0-0.7); #Lymphocytes 1.6 thou/uL (1.20-3.40); #Monocytes 0.9 thou/uL (0.11-0.59); #Neutrophils 8.6 thou/uL (1.40-6.50); %Basophils 0.5 % (0.0-1.0); %Eosinophils 5.1 % (0.0-10.0); %Lymphocytes 13.2 % (21.0-51.0); %Monocytes 7.6 % (0.0-10.0); %Neutrophils 73.6 % (42.0-75.0); Hemoglobin 13.2 g/dL (14.0-18.0); Mean Corpuscular HGB CONC 31.2 g/dL (32.0-36.0); Mean Corpuscular Hemoglobin 29.8 pg (27.0-31.0); Mean Corpuscular Volume 95.5 fL (78.0-98.0); Mean Platelet Volume 7.5 fL (7.4-10.4); Platelet Count 308 thou/uL (130-400); RBC Distribution Width 12.2 % (11.5-14.5); Red Blood Cell (RBC) Count 4.43 mill/uL (4.70-6.10); White Blood Cell (WBC) Count 11.7 thou/uL (4.8-10.8)
[2021-01-06 05:18] LABS: Anion Gap 10 mmol/L (10-20); BUN (Urea Nitrogen) 12 mg/dL (8.4-25.7); Calc. Creatinine Clearance 179 mL/min (70-130); Calcium 8.5 mg/dL (7.8-10.44); Carbon Dioxide 26 mmol/L (23-31); Chloride 102 mmol/L (98-107); Glucose 126 mg/dL (83-110); Sodium 134 mmol/L (136-145)
[2021-01-06] MEDS: Piperacillin/Tazobactam 4.5 GM in Sodium Chloride 0.9% 100 ML IVPB SCH ×4 (05:28→23:53)
[2021-01-06] MEDS ORDERED: Fluticasone Propionate Nasal Spray 16 gm Bottle NASAL SCH (09:00)
[2021-01-06] MEDS: Losartan 25 MG TAB PO SCH (09:06)
[2021-01-06] MEDS: guaiFENesin ER 600 MG TAB PO SCH ×2 (09:06→20:18)
[2021-01-06] MEDS: Enoxaparin Sodium 40 MG/0.4 ML SYRINGE SC SCH (09:07)
[2021-01-06] MEDS: Pantoprazole 40 MG VIAL IVP SCH (09:08)
[2021-01-06] MEDS ORDERED: Potassium Chloride 20 MEQ TAB PO SCH (09:30)
[2021-01-06] MEDS ORDERED: Furosemide 20 MG/2 ML VIAL SLOW IVP SCH (09:30)
[2021-01-06] MEDS: Fluticasone Propionate Nasal Spray 16 gm Bottle NASAL SCH (12:13)
[2021-01-06] MEDS: Tamsulosin HCl 0.4 MG CAP PO SCH (20:18)
[2021-01-06] MEDS: Simvastatin 5 MG TAB PO SCH (20:18)
[2021-01-06] MEDS: Acetaminophen 500 MG TAB PO PRN (20:18)
[2021-01-06] MEDS ORDERED: Amlodipine 5 MG TAB PO SCH (21:00)
[2021-01-06] MEDS ORDERED: Simvastatin 5 MG TAB PO SCH (21:00)
[2021-01-07 04:49] LABS: #Eosinphils 0.6 thou/uL (0.0-0.7); #Lymphocytes 1.7 thou/uL (1.20-3.40); #Neutrophils 10.4 thou/uL (1.40-6.50); %Basophils 0.3 % (0.0-1.0); %Eosinophils 4.3 % (0.0-10.0); %Lymphocytes 12.1 % (21.0-51.0); %Monocytes 7.4 % (0.0-10.0); Hemoglobin 13.8 g/dL (14.0-18.0); Mean Corpuscular HGB CONC 33.4 g/dL (32.0-36.0); Mean Corpuscular Hemoglobin 31.7 pg (27.0-31.0); Mean Corpuscular Volume 95.2 fL (78.0-98.0); Mean Platelet Volume 7.8 fL (7.4-10.4); Platelet Count 318 thou/uL (130-400); RBC Distribution Width 12.3 % (11.5-14.5); Red Blood Cell (RBC) Count 4.34 mill/uL (4.70-6.10); White Blood Cell (WBC) Count 13.6 thou/uL (4.8-10.8)
[2021-01-07 05:07] LABS: Phosphorus 3.5 mg/dL (2.3-4.7)
[2021-01-07 05:11] LABS: Anion Gap 13 mmol/L (10-20); BUN (Urea Nitrogen) 14 mg/dL (8.4-25.7); Calc. Creatinine Clearance 172 mL/min (70-130); Calcium 8.9 mg/dL (7.8-10.44); Carbon Dioxide 23 mmol/L (23-31); Chloride 101 mmol/L (98-107); Glucose 124 mg/dL (83-110); Magnesium 2.2 mg/dL (1.6-2.6); Potassium 3.9 mmol/L (3.5-5.1); Sodium 133 mmol/L (136-145)
[2021-01-07] MEDS: Piperacillin/Tazobactam 4.5 GM in Sodium Chloride 0.9% 100 ML IVPB SCH ×2 (05:42→11:38)
[2021-01-07] MEDS: Enoxaparin Sodium 40 MG/0.4 ML SYRINGE SC SCH (09:22)
[2021-01-07] MEDS: Citrucel 500 MG TAB PO SCH (09:22)
[2021-01-07] MEDS: Losartan 25 MG TAB PO SCH (09:23)
[2021-01-07] MEDS: guaiFENesin ER 600 MG TAB PO SCH ×2 (09:23→19:55)
[2021-01-07] MEDS: Polyethylene Glycol 3350 17 GM Packet PO SCH (09:24)
[2021-01-07] MEDS: Fluticasone Propionate Nasal Spray 16 gm Bottle NASAL SCH (11:38)
[2021-01-07] MEDS: traMADol HCl 50 MG TAB PO PRN ×2 (13:33→20:03)
[2021-01-07] MEDS: Simvastatin 5 MG TAB PO SCH (19:55)
[2021-01-07] MEDS: Tamsulosin HCl 0.4 MG CAP PO SCH (19:55)
[2021-01-07] MEDS: Benzonatate 100 MG CAP PO PRN (19:55)
[2021-01-07] MEDS ORDERED: Lidocaine 2% Viscous Solution 10 ML, Aluminum & Magnesium Hydroxide 30 ML SSW SCH (23:00)
[2021-01-08 05:32] LABS: #Eosinphils 0.5 thou/uL (0.0-0.7); #Lymphocytes 1.5 thou/uL (1.20-3.40); #Monocytes 1.1 thou/uL (0.11-0.59); #Neutrophils 10.4 thou/uL (1.40-6.50); %Basophils 0.3 % (0.0-1.0); %Lymphocytes 11.3 % (21.0-51.0); %Monocytes 8.1 % (0.0-10.0); %Neutrophils 76.3 % (42.0-75.0); Mean Corpuscular HGB CONC 32.7 g/dL (32.0-36.0); Mean Corpuscular Hemoglobin 31.3 pg (27.0-31.0); Mean Corpuscular Volume 95.7 fL (78.0-98.0); Mean Platelet Volume 7.5 fL (7.4-10.4); Platelet Count 346 thou/uL (130-400); RBC Distribution Width 12.3 % (11.5-14.5); Red Blood Cell (RBC) Count 4.47 mill/uL (4.70-6.10); White Blood Cell (WBC) Count 13.7 thou/uL (4.8-10.8)
[2021-01-08 05:49] LABS: Anion Gap 14 mmol/L (10-20); BUN (Urea Nitrogen) 12 mg/dL (8.4-25.7); Calc. Creatinine Clearance 166 mL/min (70-130); Calcium 8.9 mg/dL (7.8-10.44); Carbon Dioxide 24 mmol/L (23-31); Chloride 103 mmol/L (98-107); Glucose 116 mg/dL (83-110); Potassium 4.6 mmol/L (3.5-5.1); Sodium 136 mmol/L (136-145)
[2021-01-08] MEDS: guaiFENesin ER 600 MG TAB PO SCH ×2 (07:25→21:04)
[2021-01-08] MEDS: Benzonatate 100 MG CAP PO PRN ×3 (07:25→21:10)
[2021-01-08] MEDS: Losartan 25 MG TAB PO SCH (07:25)
[2021-01-08] MEDS: Enoxaparin Sodium 40 MG/0.4 ML SYRINGE SC SCH (07:26)
[2021-01-08] MEDS: Polyethylene Glycol 3350 17 GM Packet PO SCH (07:26)
[2021-01-08] MEDS: Citrucel 500 MG TAB PO SCH (08:49)
[2021-01-08] MEDS: Fluticasone Propionate Nasal Spray 16 gm Bottle NASAL SCH (11:46)
[2021-01-08] MEDS: Simvastatin 5 MG TAB PO SCH (21:04)
[2021-01-08] MEDS: Tamsulosin HCl 0.4 MG CAP PO SCH (21:04)
[2021-01-08] MEDS: traMADol HCl 50 MG TAB PO PRN (21:10)
[2021-01-09 05:39] LABS: #Eosinphils 0.7 thou/uL (0.0-0.7); #Lymphocytes 1.6 thou/uL (1.20-3.40); #Monocytes 1.1 thou/uL (0.11-0.59); #Neutrophils 11.1 thou/uL (1.40-6.50); %Basophils 0.2 % (0.0-1.0); %Eosinophils 4.6 % (0.0-10.0); %Monocytes 7.5 % (0.0-10.0); %Neutrophils 76.7 % (42.0-75.0); Hemoglobin 13.1 g/dL (14.0-18.0); Mean Corpuscular HGB CONC 31.1 g/dL (32.0-36.0); Mean Corpuscular Hemoglobin 29.8 pg (27.0-31.0); Mean Platelet Volume 7.9 fL (7.4-10.4); Platelet Count 354 thou/uL (130-400); RBC Distribution Width 12.4 % (11.5-14.5); White Blood Cell (WBC) Count 14.5 thou/uL (4.8-10.8)
[2021-01-09 05:54] LABS: Anion Gap 13 mmol/L (10-20); BUN (Urea Nitrogen) 14 mg/dL (8.4-25.7); Calc. Creatinine Clearance 144 mL/min (70-130); Carbon Dioxide 26 mmol/L (23-31); Chloride 100 mmol/L (98-107); Glucose 109 mg/dL (83-110); Potassium 4.8 mmol/L (3.5-5.1); Sodium 134 mmol/L (136-145)
[2021-01-09] MEDS: Citrucel 500 MG TAB PO SCH (08:18)
[2021-01-09] MEDS: guaiFENesin ER 600 MG TAB PO SCH ×2 (08:18→21:10)
[2021-01-09] MEDS: Losartan 25 MG TAB PO SCH (08:18)
[2021-01-09] MEDS: Enoxaparin Sodium 40 MG/0.4 ML SYRINGE SC SCH (08:18)
[2021-01-09] MEDS: Polyethylene Glycol 3350 17 GM Packet PO SCH (08:19)
[2021-01-09 09:23] LABS: Bilirubin Negative (Negative); Blood, Urine Negative (Negative); Clarity Clear (Clear); Glucose, Urine (Dipstick) Normal (Negative); Ketone, Urine Negative (Negative); Leukocyte Negative Leu/uL (Negative); Nitrite Negative (Negative); Protein, Urine (Dipstick) Negative (Neg-Trace); Specific Gravity, Urine 1.016 (1.002-1.036)
[2021-01-09] MEDS: Piperacillin/Tazobactam 3.375 GM in Sodium Chloride 0.9% 100 ML IVPB SCH ×2 (10:30→17:15)
[2021-01-09] MEDS: Fluticasone Propionate Nasal Spray 16 gm Bottle NASAL SCH (11:41)
[2021-01-09] MEDS: traMADol HCl 50 MG TAB PO PRN (19:32)
[2021-01-09] MEDS: Acetaminophen 500 MG TAB PO PRN (19:33)
[2021-01-09] MEDS: Tamsulosin HCl 0.4 MG CAP PO SCH (21:10)
[2021-01-09] MEDS: Benzonatate 100 MG CAP PO PRN (21:10)
[2021-01-09] MEDS: Simvastatin 5 MG TAB PO SCH (21:10)
[2021-01-09] MEDS ORDERED: traZODone HCl 50 MG TAB PO SCH (22:15)
[2021-01-10] MEDS: Piperacillin/Tazobactam 3.375 GM in Sodium Chloride 0.9% 100 ML IVPB SCH (00:22)
[2021-01-10 06:25] LABS: #Basophils 0.1 thou/uL (0.0-0.2); #Eosinphils 0.6 thou/uL (0.0-0.7); #Lymphocytes 1.2 thou/uL (1.20-3.40); #Monocytes 0.8 thou/uL (0.11-0.59); #Neutrophils 9.3 thou/uL (1.40-6.50); %Basophils 0.5 % (0.0-1.0); %Eosinophils 5.1 % (0.0-10.0); %Lymphocytes 9.6 % (21.0-51.0); %Monocytes 6.8 % (0.0-10.0); Mean Corpuscular HGB CONC 32.8 g/dL (32.0-36.0); Mean Corpuscular Hemoglobin 31.4 pg (27.0-31.0); Mean Corpuscular Volume 95.8 fL (78.0-98.0); Mean Platelet Volume 7.9 fL (7.4-10.4); Platelet Count 332 thou/uL (130-400); RBC Distribution Width 12.2 % (11.5-14.5); Red Blood Cell (RBC) Count 4.14 mill/uL (4.70-6.10)
[2021-01-10 06:47] LABS: Anion Gap 13 mmol/L (10-20); BUN (Urea Nitrogen) 12 mg/dL (8.4-25.7); Calc. Creatinine Clearance 154 mL/min (70-130); Calcium 9.1 mg/dL (7.8-10.44); Carbon Dioxide 22 mmol/L (23-31); Chloride 104 mmol/L (98-107); Glucose 106 mg/dL (83-110); Potassium 4.4 mmol/L (3.5-5.1); Sodium 135 mmol/L (136-145)
[2021-01-10] MEDS: Citrucel 500 MG TAB PO SCH (08:32)
[2021-01-10] MEDS: guaiFENesin ER 600 MG TAB PO SCH (08:32)
[2021-01-10] MEDS: Enoxaparin Sodium 40 MG/0.4 ML SYRINGE SC SCH (08:32)
[2021-01-10] MEDS: Polyethylene Glycol 3350 17 GM Packet PO SCH (08:32)
[2021-01-10] MEDS: Losartan 25 MG TAB PO SCH (08:33)
[2021-01-10] MEDS: Benzonatate 100 MG CAP PO PRN (10:37)
[2021-01-10] MEDS: Fluticasone Propionate Nasal Spray 16 gm Bottle NASAL SCH (11:10)
[2021-01-10 11:36] VITALS: BP 126/71; TEMP 98.2
== END 2021-01-10 16:58 | disposition home health service (06) | DRG 329 ==
LOC: ERS 01:54 → SURG B 03:13 → IMCU/EMU 01-04 06:15 → 2NO 01-06 00:26 → SURG A 01-07 15:06
PROVIDERS: ADMIT Internal Medicine; ATTEND Internal Medicine
PROC: 0D9P8ZZ Drainage of Rectum, Via Natural or Artificial Opening Endoscopic (ICD-10-PCS; principal; 2020-12-28)
PROC: 0D9N8ZZ Drainage of Sigmoid Colon, Via Natural or Artificial Opening Endoscopic (ICD-10-PCS; 2020-12-28)
PROC: 0DBN0ZZ Excision of Sigmoid Colon, Open Approach (ICD-10-PCS; 2020-12-29)
PROC: 0D1L0Z4 Bypass Transverse Colon to Cutaneous, Open Approach (ICD-10-PCS; 2021-01-03)
PROC: 0W9G0ZZ Drainage of Peritoneal Cavity, Open Approach (ICD-10-PCS; 2021-01-03)
PROC: 02HV33Z Insertion of Infusion Device into Superior Vena Cava, Percutaneous Approach (ICD-10-PCS; 2021-01-03)
PROC: 3E033XZ Introduction of Vasopressor into Peripheral Vein, Percutaneous Approach (ICD-10-PCS; 2021-01-03)
PROC: 0D9670Z Drainage of Stomach with Drainage Device, Via Natural or Artificial Opening (ICD-10-PCS; 2021-01-03)
DX: K56.2 Volvulus (principal); K55.031 Focal (segmental) acute (reversible) ischemia of large intestine; T81.31XA Disruption of external operation (surgical) wound, not elsewhere classified, initial encounter; I47.1 Supraventricular tachycardia; K63.3 Ulcer of intestine; Z68.41 Body mass index [BMI] 40.0-44.9, adult; L76.32 Postprocedural hematoma of skin and subcutaneous tissue following other procedure; Z20.822 Contact with and (suspected) exposure to COVID-19; I10 Essential (primary) hypertension; E78.00 Pure hypercholesterolemia, unspecified; E78.5 Hyperlipidemia, unspecified; K56.601 Complete intestinal obstruction, unspecified as to cause; N28.1 Cyst of kidney, acquired; E87.6 Hypokalemia; E66.01 Morbid (severe) obesity due to excess calories; K56.7 Ileus, unspecified; J06.9 Acute upper respiratory infection, unspecified; G47.33 Obstructive sleep apnea (adult) (pediatric); Y83.8 Other surgical procedures as the cause of abnormal reaction of the patient, or of later complication, without mention of misadventure at the time of the procedure; R33.9 Retention of urine, unspecified; E87.70 Fluid overload, unspecified; D72.829 Elevated white blood cell count, unspecified; Z87.891 Personal history of nicotine dependence; Z79.899 Other long term (current) drug therapy
CPT/HCPCS: 36415; 36416; 71045; 74018; 74022; 80048; 80053; 81003; 81015; 83605; 83735; 84100; 84484; 85025; 87086; 87635; 88307; 93005; 93010; 93306; 94640; 94760; 99284; C1751; C9113; J0153; J0171; J0360; J1100; J1650; J1885; J1940; J2250; J2270; J2370; J2405; J2543; J2704; J2795; J3010; J3480; J3490; J7120; J7620; S0020; S0028; U0003; U0005

== ENCOUNTER 2021-05-13 12:33 | Outpatient (CLI) | payer MEDICARE ==
[2021-05-13 14:05] LABS: #Eosinphils 0.2 10x3/uL (0.0-0.5); #Monocytes 0.7 10x3/uL (0.0-1.1); #Neutrophils 4.7 10x3/uL (1.5-8.4); %Basophils 0.5 % (0.0-2.0); %Eosinophils 2.7 % (0.0-6.0); %Lymphocytes 27.6 % (18.0-47.0); %Monocytes 8.9 % (0.0-10.0); %Neutrophils 60.2 % (40.0-75.0); Hemoglobin 15.3 g/dL (13.5-17.5); Mean Corpuscular HGB CONC 33.2 g/dL (32.0-36.0); Mean Corpuscular Hemoglobin 30.5 pg (27.0-33.0); Mean Platelet Volume 9.9 fl (7.4-10.4); Platelet Count 275 10x3/uL (150-450); RBC Distribution Width 13.5 % (11.5-14.5); Red Blood Cell (RBC) Count 5.01 10x6/uL (4.32-5.72); White Blood Cell (WBC) Count 7.8 10x3/uL (3.5-10.5)
[2021-05-13 15:03] LABS: Anion Gap 14 mmol/L (10-20); BUN (Urea Nitrogen) 16 mg/dL (8.4-25.7); Calc. Creatinine Clearance 0 mL/min (70-130); Calcium 10.5 mg/dL (7.8-10.44); Carbon Dioxide 26 mmol/L (23-31); Chloride 104 mmol/L (98-107); Glucose 87 mg/dL (83-110); Potassium 4.6 mmol/L (3.5-5.1); Sodium 139 mmol/L (136-145)
[2021-05-13 16:45] LABS: Hemoglobin A1c 5.4 % (4.0-6.0)
[2021-05-14 13:56] LABS: SARS-CoV-2 PCR by NAA Not Detected (NotDetected)
== END 2021-05-13 12:34 | disposition home or self-care (01) ==
LOC: LABBT 12:33
PROVIDERS: ATTEND Specialist
DX: Z01.818 Encounter for other preprocedural examination (principal); Z93.3 Colostomy status; Z20.822 Contact with and (suspected) exposure to COVID-19
CPT/HCPCS: 71046; 80048; 83036; 85025; 93005; U0003; U0005; 93010

== ENCOUNTER 2021-08-17 10:03 | Outpatient (CLI) | payer MEDICARE ==
[2021-08-17 11:36] LABS: #Basophils 0.1 10x3/uL (0.0-0.2); #Eosinphils 0.2 10x3/uL (0.0-0.5); #Monocytes 0.6 10x3/uL (0.0-1.1); #Neutrophils 3.8 10x3/uL (1.5-8.4); %Basophils 0.7 % (0.0-2.0); %Eosinophils 3.2 % (0.0-6.0); %Lymphocytes 30.7 % (18.0-47.0); %Monocytes 8.8 % (0.0-10.0); %Neutrophils 56.5 % (40.0-75.0); Hemoglobin 14.9 g/dL (13.5-17.5); Mean Corpuscular HGB CONC 33.1 g/dL (32.0-36.0); Mean Corpuscular Hemoglobin 30.8 pg (27.0-33.0); Mean Platelet Volume 10.2 fl (7.4-10.4); Platelet Count 278 10x3/uL (150-450); Red Blood Cell (RBC) Count 4.84 10x6/uL (4.32-5.72); White Blood Cell (WBC) Count 6.8 10x3/uL (3.5-10.5)
[2021-08-17 11:58] LABS: Anion Gap 14 mmol/L (10-20); BUN (Urea Nitrogen) 13 mg/dL (8.4-25.7); Calc. Creatinine Clearance 0 mL/min (70-130); Calcium 9.9 mg/dL (7.8-10.44); Carbon Dioxide 23 mmol/L (23-31); Chloride 105 mmol/L (98-107); Glucose 84 mg/dL (83-110); Potassium 4.5 mmol/L (3.5-5.1); Sodium 137 mmol/L (136-145)
[2021-08-17 14:36] LABS: Hemoglobin A1c 5.2 % (4.0-6.0)
[2021-08-17 17:23] LABS: SARS-CoV-2 PCR by NAA Not Detected (NotDetected)
== END 2021-08-17 10:04 | disposition home or self-care (01) ==
LOC: LABBT 10:03
PROVIDERS: ATTEND Specialist
DX: Z01.812 Encounter for preprocedural laboratory examination (principal); Z93.3 Colostomy status; Z90.49 Acquired absence of other specified parts of digestive tract; Z20.822 Contact with and (suspected) exposure to COVID-19
CPT/HCPCS: 71046; 80048; 83036; 85025; 93005; U0003; U0005; 93010

== ENCOUNTER 2021-08-17 10:15 | Inpatient (IN) | payer MEDICARE ==
[2021-08-22] MEDS ORDERED: Acetaminophen 500 MG TAB ONE (06:11)
[2021-08-22] MEDS ORDERED: Ketorolac Tromethamine 30 MG/ML VIAL ONE (06:11)
[2021-08-22] MEDS ORDERED: Scopolamine 1.5 mg/72 hour Patch ONE (06:15)
[2021-08-22] MEDS ORDERED: Fentanyl 100 MCG/2 ML VIAL ONE ×3 (06:30→10:29)
[2021-08-22] MEDS ORDERED: Meropenem 2 GM, Admixture Fee 1 EACH in Sodium Chloride 0.9% 100 ML IVPB SCH (06:30)
[2021-08-22] MEDS ORDERED: Midazolam HCl 2 mg/2 ml Vial ONE (06:30)
[2021-08-22] MEDS ORDERED: Bupivacaine PF 0.5% 30 ML VIAL ONE (06:38)
[2021-08-22] MEDS ORDERED: Lidocaine 1% w/Epinephrine 1:100K 20 ML VIAL ONE (06:38)
[2021-08-22] MEDS ORDERED: SUGAMMADEX SODIUM 200 MG/2 ML VIAL ONE (06:39)
[2021-08-22] MEDS ORDERED: Fentanyl 250 MCG/5 ML VIAL ONE (06:39)
[2021-08-22] MEDS ORDERED: Lidocaine 1% PF 5 ML VIAL ONE (07:40)
[2021-08-22] MEDS ORDERED: Rocuronium Bromide 10 MG/ML (10ML VIAL) ONE (07:40)
[2021-08-22] MEDS ORDERED: Dexamethasone 20 MG/5 ML VIAL ONE (07:40)
[2021-08-22] MEDS ORDERED: ePHEDrine 50 MG/ML VIAL ONE (07:40)
[2021-08-22] MEDS ORDERED: PROPOFOL 200 MG/20 ML VIAL ONE (07:40)
[2021-08-22] MEDS ORDERED: Bupivacaine HCl 0.5%/Epinephrine 1:200,000/PF 30 ml Vial ONE (07:40)
[2021-08-22] MEDS ORDERED: Ondansetron PF 4 MG/2 ML Vial ONE (07:40)
[2021-08-22] MEDS ORDERED: Promethazine HCl 25 MG/ML VIAL IVPB PRN (09:31)
[2021-08-22] MEDS ORDERED: Promethazine HCl 25 MG/ML VIAL IM PRN (09:31)
[2021-08-22] MEDS ORDERED: HYDROmorphone 2 MG/ML VIAL SLOW IVP PRN (09:31)
[2021-08-22] MEDS ORDERED: Ondansetron HCl/PF 4 MG/2 ML Vial IVP PRN (09:31)
[2021-08-22] MEDS ORDERED: Morphine 4 MG/ML VIAL SLOW IVP PRN ×3 (10:03→10:48)
[2021-08-22] MEDS ORDERED: hydrALAZINE 20 MG/ML VIAL SLOW IVP PRN (10:03)
[2021-08-22] MEDS ORDERED: Ondansetron PF 4 MG/2 ML Vial IVP PRN (10:03)
[2021-08-22] MEDS ORDERED: traMADol HCl 50 MG TAB PO PRN (10:07)
[2021-08-22] MEDS ORDERED: Fluticasone Propionate Nasal Spray 16 gm Bottle NASAL PRN (10:40)
[2021-08-22] MEDS ORDERED: D5 1/2 NS w/20 mEq KCL 1,000 ML ONE (10:41)
[2021-08-22] MEDS: Ketorolac Tromethamine 30 MG/ML VIAL IVP SCH ×3 (11:50→23:37)
[2021-08-22] MEDS: D5 1/2 NS w/20 mEq KCL 1,000 ML IV SCH ×2 (11:52→19:45)
[2021-08-22 11:58] VITALS: BMI 41.3
[2021-08-22] MEDS ORDERED: Acetaminophen 500 MG TAB PO SCH (12:00)
[2021-08-22] MEDS: Fish Oil 1,000 MG CAP PO SCH (20:27)
[2021-08-22] MEDS: Amlodipine 5 MG TAB PO SCH (20:28)
[2021-08-22] MEDS: Simvastatin 5 MG TAB PO SCH (20:28)
[2021-08-22] MEDS: guaiFENesin ER 600 MG TAB PO SCH (20:28)
[2021-08-22] MEDS: Famotidine 20 MG TAB PO SCH (20:28)
[2021-08-22] MEDS ORDERED: Lorazepam 2 MG/ML VIAL SLOW IVP PRN (20:54)
[2021-08-22] MEDS: Enoxaparin Sodium 40 MG/0.4 ML SYRINGE SC SCH (21:57)
[2021-08-23] MEDS: D5 1/2 NS w/20 mEq KCL 1,000 ML IV SCH (02:53)
[2021-08-23] MEDS: Ketorolac Tromethamine 30 MG/ML VIAL IVP SCH ×2 (05:33→13:09)
[2021-08-23 06:13] LABS: #Lymphocytes 1.1 thou/uL (1.20-3.40); #Monocytes 0.7 thou/uL (0.11-0.59); #Neutrophils 12.3 thou/uL (1.40-6.50); %Basophils 0.3 % (0.0-1.0); %Eosinophils 0.1 % (0.0-10.0); %Monocytes 4.6 % (0.0-10.0); %Neutrophils 86.9 % (42.0-75.0); Hemoglobin 15.3 g/dL (14.0-18.0); Mean Corpuscular HGB CONC 32.4 g/dL (32.0-36.0); Mean Corpuscular Hemoglobin 30.9 pg (27.0-31.0); Mean Corpuscular Volume 95.4 fL (78.0-98.0); Mean Platelet Volume 7.2 fL (7.4-10.4); Platelet Count 273 thou/uL (130-400); RBC Distribution Width 12.5 % (11.5-14.5); Red Blood Cell (RBC) Count 4.95 mill/uL (4.70-6.10); White Blood Cell (WBC) Count 14.2 thou/uL (4.8-10.8)
[2021-08-23 06:40] LABS: Anion Gap 13 mmol/L (10-20); BUN (Urea Nitrogen) 15 mg/dL (8.4-25.7); Calc. Creatinine Clearance 123 mL/min (70-130); Calcium 10.4 mg/dL (7.8-10.44); Carbon Dioxide 25 mmol/L (23-31); Chloride 102 mmol/L (98-107); Glucose 131 mg/dL (83-110); Potassium 4.5 mmol/L (3.5-5.1); Sodium 135 mmol/L (136-145)
[2021-08-23] MEDS: Famotidine 20 MG TAB PO SCH ×2 (09:45→22:21)
[2021-08-23] MEDS: Acetaminophen 500 MG TAB PO SCH ×3 (13:09→22:28)
[2021-08-23] MEDS ORDERED: Ibuprofen 600 MG TAB PO PRN (13:17)
[2021-08-23] MEDS: Simvastatin 5 MG TAB PO SCH (22:22)
[2021-08-23] MEDS: Amlodipine 5 MG TAB PO SCH (22:22)
[2021-08-23] MEDS: guaiFENesin ER 600 MG TAB PO SCH (22:22)
[2021-08-23] MEDS: Fish Oil 1,000 MG CAP PO SCH (22:22)
[2021-08-23] MEDS: Enoxaparin Sodium 40 MG/0.4 ML SYRINGE SC SCH (22:22)
[2021-08-24] MEDS: Acetaminophen 500 MG TAB PO SCH ×3 (06:00→18:32)
[2021-08-24] MEDS: Famotidine 20 MG TAB PO SCH ×2 (09:49→22:36)
[2021-08-24] MEDS: Polyethylene Glycol 3350 17 GM Packet PO SCH (09:49)
[2021-08-24] MEDS: Fish Oil 1,000 MG CAP PO SCH (22:35)
[2021-08-24] MEDS: Enoxaparin Sodium 40 MG/0.4 ML SYRINGE SC SCH (22:35)
[2021-08-24] MEDS: Simvastatin 5 MG TAB PO SCH (22:35)
[2021-08-24] MEDS: guaiFENesin ER 600 MG TAB PO SCH (22:36)
[2021-08-24] MEDS: Amlodipine 5 MG TAB PO SCH (22:36)
[2021-08-25] MEDS: Acetaminophen 500 MG TAB PO SCH ×3 (00:41→14:48)
[2021-08-25] MEDS: Polyethylene Glycol 3350 17 GM Packet PO SCH (08:41)
[2021-08-25] MEDS: Famotidine 20 MG TAB PO SCH (08:41)
[2021-08-25 16:19] VITALS: BP 170/83; TEMP 97.7
== END 2021-08-25 18:45 | disposition home or self-care (01) | DRG 330 ==
LOC: SURG A 08-22 05:49 → SURG B 08-22 11:22
PROVIDERS: ADMIT Specialist; ATTEND Specialist
PROC: 0DBL0ZZ Excision of Transverse Colon, Open Approach (ICD-10-PCS; principal; 2021-08-22)
PROC: 3E0R3BZ Introduction of Anesthetic Agent into Spinal Canal, Percutaneous Approach (ICD-10-PCS; 2021-08-22)
DX: Z43.3 Encounter for attention to colostomy (principal); E66.9 Obesity, unspecified; K59.9 Functional intestinal disorder, unspecified; K43.2 Incisional hernia without obstruction or gangrene; E78.00 Pure hypercholesterolemia, unspecified; Z68.41 Body mass index [BMI] 40.0-44.9, adult; Z79.82 Long term (current) use of aspirin; Z79.899 Other long term (current) drug therapy; Z90.49 Acquired absence of other specified parts of digestive tract
CPT/HCPCS: 36415; 36416; 80048; 85025; 88309; J1100; J1650; J1885; J2060; J2250; J2405; J2704; J3010; J3480; J3490; S0020

== ENCOUNTER 2021-08-29 14:01 | Inpatient (IN) | payer MEDICARE ==
[2021-08-29] MEDS ORDERED: Ondansetron PF 4 MG/2 ML Vial IVP PRN (17:03)
[2021-08-29] MEDS ORDERED: Lorazepam 2 MG/ML VIAL SLOW IVP PRN (17:03)
[2021-08-29] MEDS ORDERED: hydrALAZINE 20 MG/ML VIAL SLOW IVP PRN (17:03)
[2021-08-29] MEDS ORDERED: Ondansetron ODT 4 MG TAB PO PRN (17:03)
[2021-08-29] MEDS ORDERED: traMADol HCl 50 MG TAB PO PRN (17:09)
[2021-08-29] MEDS ORDERED: Ibuprofen 600 MG TAB PO PRN (17:09)
[2021-08-29] MEDS ORDERED: Ketorolac Tromethamine 30 MG/ML VIAL IVP PRN (17:09)
[2021-08-29] MEDS ORDERED: Potassium Chloride 20 MEQ TAB PO SCH (17:15)
[2021-08-29] MEDS ORDERED: Piperacillin/Tazobactam 3.375 GM in Sodium Chloride 0.9% 100 ML IVPB SCH ×2 (17:15→17:30)
[2021-08-29] MEDS: Potassium Chloride 20 MEQ in Lactated Ringer's 1,000 ML IV SCH (18:19)
[2021-08-29] MEDS ORDERED: Benzonatate 100 MG CAP PO PRN (18:38)
[2021-08-29] MEDS: guaiFENesin ER 600 MG TAB PO SCH (20:20)
[2021-08-29] MEDS: Famotidine 20 MG TAB PO SCH (20:20)
[2021-08-29] MEDS: Simvastatin 5 MG TAB PO SCH (20:20)
[2021-08-29] MEDS: Enoxaparin Sodium 40 MG/0.4 ML SYRINGE SC SCH (20:25)
[2021-08-29] MEDS: Piperacillin/Tazobactam 3.375 GM in Sodium Chloride 0.9% 100 ML IVPB SCH (21:56)
[2021-08-30] MEDS: Piperacillin/Tazobactam 3.375 GM in Sodium Chloride 0.9% 100 ML IVPB SCH ×3 (05:44→21:07)
[2021-08-30 06:55] LABS: Anion Gap 12 mmol/L (10-20); BUN (Urea Nitrogen) 16 mg/dL (8.4-25.7); Calc. Creatinine Clearance 122 mL/min (70-130); Carbon Dioxide 27 mmol/L (23-31); Chloride 103 mmol/L (98-107); Glucose 101 mg/dL (83-110); Potassium 3.7 mmol/L (3.5-5.1); Sodium 138 mmol/L (136-145)
[2021-08-30] MEDS: Famotidine 20 MG TAB PO SCH ×2 (08:32→21:07)
[2021-08-30] MEDS: Potassium Chloride 20 MEQ in Lactated Ringer's 1,000 ML IV SCH ×2 (08:33→21:05)
[2021-08-30] MEDS ORDERED: Fluticasone Propionate Nasal Spray 16 gm Bottle NASAL PRN (09:00)
[2021-08-30 11:05] LABS: SARS-CoV-2 PCR by NAA Not Detected (NotDetected)
[2021-08-30] MEDS ORDERED: PROPOFOL 200 MG/20 ML VIAL ONE (17:43)
[2021-08-30] MEDS ORDERED: Lidocaine 1% PF 5 ML VIAL ONE (17:43)
[2021-08-30] MEDS ORDERED: Promethazine HCl 25 MG/ML VIAL IVPB PRN (18:56)
[2021-08-30] MEDS ORDERED: Ketorolac Tromethamine 30 MG/ML VIAL IVP PRN (18:56)
[2021-08-30] MEDS ORDERED: Ondansetron HCl/PF 4 MG/2 ML Vial IVP PRN (18:56)
[2021-08-30] MEDS ORDERED: Promethazine HCl 25 MG/ML VIAL IM PRN (18:56)
[2021-08-30] MEDS ORDERED: Promethazine 25 MG TAB PO PRN (19:57)
[2021-08-30] MEDS: Enoxaparin Sodium 40 MG/0.4 ML SYRINGE SC SCH (21:06)
[2021-08-30] MEDS: guaiFENesin ER 600 MG TAB PO SCH (21:07)
[2021-08-30] MEDS: Simvastatin 5 MG TAB PO SCH (21:16)
[2021-08-31] MEDS ORDERED: Metoclopramide HCl 10 MG/2 ML VIAL IVP PRN (02:18)
[2021-08-31] MEDS ORDERED: Metoclopramide HCl 10 MG/2 ML VIAL IVP SCH (03:00)
[2021-08-31] MEDS: Piperacillin/Tazobactam 3.375 GM in Sodium Chloride 0.9% 100 ML IVPB SCH ×3 (06:01→20:39)
[2021-08-31] MEDS: Potassium Chloride 20 MEQ in Lactated Ringer's 1,000 ML IV SCH ×4 (06:01→17:43)
[2021-08-31 06:42] LABS: Anion Gap 13 mmol/L (10-20); BUN (Urea Nitrogen) 11 mg/dL (8.4-25.7); Calc. Creatinine Clearance 144 mL/min (70-130); Calcium 9.6 mg/dL (7.8-10.44); Carbon Dioxide 24 mmol/L (23-31); Chloride 105 mmol/L (98-107); Glucose 92 mg/dL (83-110); Potassium 3.3 mmol/L (3.5-5.1); Sodium 139 mmol/L (136-145)
[2021-08-31 06:47] LABS: #Eosinphils 0.7 thou/uL (0.0-0.7); #Lymphocytes 1.6 thou/uL (1.20-3.40); #Monocytes 0.8 thou/uL (0.11-0.59); #Neutrophils 5.4 thou/uL (1.40-6.50); %Basophils 0.5 % (0.0-1.0); %Eosinophils 8.6 % (0.0-10.0); %Lymphocytes 18.8 % (21.0-51.0); %Monocytes 9.5 % (0.0-10.0); %Neutrophils 62.6 % (42.0-75.0); Hemoglobin 13.5 g/dL (14.0-18.0); Mean Corpuscular HGB CONC 31.7 g/dL (32.0-36.0); Mean Corpuscular Hemoglobin 30.2 pg (27.0-31.0); Mean Corpuscular Volume 95.3 fL (78.0-98.0); Mean Platelet Volume 7.4 fL (7.4-10.4); Platelet Count 309 thou/uL (130-400); RBC Distribution Width 12.2 % (11.5-14.5); Red Blood Cell (RBC) Count 4.48 mill/uL (4.70-6.10); White Blood Cell (WBC) Count 8.6 thou/uL (4.8-10.8)
[2021-08-31] MEDS: Famotidine 20 MG TAB PO SCH ×2 (09:13→20:38)
[2021-08-31] MEDS: guaiFENesin ER 600 MG TAB PO SCH (20:38)
[2021-08-31] MEDS: Simvastatin 5 MG TAB PO SCH (20:38)
[2021-08-31] MEDS: Enoxaparin Sodium 40 MG/0.4 ML SYRINGE SC SCH (20:39)
[2021-09-01] MEDS: Potassium Chloride 20 MEQ in Lactated Ringer's 1,000 ML IV SCH (05:17)
[2021-09-01] MEDS: Piperacillin/Tazobactam 3.375 GM in Sodium Chloride 0.9% 100 ML IVPB SCH (05:20)
[2021-09-01] MEDS: Famotidine 20 MG TAB PO SCH ×2 (09:33→21:02)
[2021-09-01] MEDS: Acetaminophen 500 MG TAB PO PRN (15:41)
[2021-09-01] MEDS: Enoxaparin Sodium 40 MG/0.4 ML SYRINGE SC SCH (21:02)
[2021-09-01] MEDS: Simvastatin 5 MG TAB PO SCH (21:02)
[2021-09-01] MEDS: guaiFENesin ER 600 MG TAB PO SCH (21:02)
[2021-09-02] MEDS: Famotidine 20 MG TAB PO SCH ×2 (08:55→20:36)
[2021-09-02] MEDS: Enoxaparin Sodium 40 MG/0.4 ML SYRINGE SC SCH (20:35)
[2021-09-02] MEDS: Simvastatin 5 MG TAB PO SCH (20:36)
[2021-09-02] MEDS: guaiFENesin ER 600 MG TAB PO SCH (20:36)
[2021-09-02] MEDS: Acetaminophen 500 MG TAB PO PRN (20:43)
[2021-09-03] MEDS: Famotidine 20 MG TAB PO SCH ×2 (07:49→20:49)
[2021-09-03] MEDS: Bisacodyl 10 MG SUPP PR SCH ×2 (07:49→14:45)
[2021-09-03] MEDS: Enoxaparin Sodium 40 MG/0.4 ML SYRINGE SC SCH (20:48)
[2021-09-03] MEDS: Simvastatin 5 MG TAB PO SCH (20:49)
[2021-09-03] MEDS: guaiFENesin ER 600 MG TAB PO SCH (20:49)
[2021-09-04 05:01] LABS: #Basophils 0.1 thou/uL (0.0-0.2); #Eosinphils 0.5 thou/uL (0.0-0.7); #Lymphocytes 2.1 thou/uL (1.20-3.40); #Monocytes 0.8 thou/uL (0.11-0.59); %Lymphocytes 24.8 % (21.0-51.0); %Monocytes 9.6 % (0.0-10.0); %Neutrophils 58.7 % (42.0-75.0); Hemoglobin 13.2 g/dL (14.0-18.0); Mean Corpuscular HGB CONC 34.4 g/dL (32.0-36.0); Mean Corpuscular Hemoglobin 32.6 pg (27.0-31.0); Mean Corpuscular Volume 94.8 fL (78.0-98.0); Mean Platelet Volume 6.7 fL (7.4-10.4); Platelet Count 291 thou/uL (130-400); RBC Distribution Width 12.1 % (11.5-14.5); Red Blood Cell (RBC) Count 4.05 mill/uL (4.70-6.10); White Blood Cell (WBC) Count 8.5 thou/uL (4.8-10.8)
[2021-09-04 05:21] LABS: ALT (SGPT) 19 U/L (8-55); AST (SGOT) 13 U/L (5-34); Albumin 3.4 g/dL (3.4-4.8); Alkaline Phosphatase 59 U/L (40-110); Anion Gap 9 mmol/L (10-20); BUN (Urea Nitrogen) 7 mg/dL (8.4-25.7); Bilirubin, Total 0.3 mg/dL (0.2-1.2); Calc. Creatinine Clearance 139 mL/min (70-130); Calcium 9.4 mg/dL (7.8-10.44); Carbon Dioxide 28 mmol/L (23-31); Chloride 104 mmol/L (98-107); Globulin 2.6 g/dL (2.4-3.5); Glucose 98 mg/dL (83-110); Potassium 3.3 mmol/L (3.5-5.1); Sodium 138 mmol/L (136-145)
[2021-09-04] MEDS: Famotidine 20 MG TAB PO SCH ×2 (09:08→20:50)
[2021-09-04] MEDS: Bisacodyl 10 MG SUPP PR SCH (09:13)
[2021-09-04] MEDS: Enoxaparin Sodium 40 MG/0.4 ML SYRINGE SC SCH (20:50)
[2021-09-04] MEDS: guaiFENesin ER 600 MG TAB PO SCH (20:50)
[2021-09-04] MEDS: Simvastatin 5 MG TAB PO SCH (20:50)
[2021-09-05] MEDS: Famotidine 20 MG TAB PO SCH ×2 (09:39→21:04)
[2021-09-05] MEDS: Bisacodyl 10 MG SUPP PR SCH (09:39)
[2021-09-05 10:27] VITALS: BMI 39.7
[2021-09-05] MEDS: Enoxaparin Sodium 40 MG/0.4 ML SYRINGE SC SCH (20:53)
[2021-09-05] MEDS: Simvastatin 5 MG TAB PO SCH (21:04)
[2021-09-05] MEDS: guaiFENesin ER 600 MG TAB PO SCH (21:04)
[2021-09-06] MEDS: Famotidine 20 MG TAB PO SCH (08:53)
[2021-09-06] MEDS: Bisacodyl 10 MG SUPP PR SCH (08:54)
[2021-09-06 12:41] VITALS: BP 153/74; TEMP 98.9
== END 2021-09-06 12:32 | disposition home or self-care (01) | DRG 863 ==
LOC: T4-A 14:56 → 2NO 09-03 22:05 → CCU 09-04 09:48 → T4-A 09-04 14:06
PROVIDERS: ADMIT Specialist; ATTEND Specialist
PROC: 0D7E8ZZ Dilation of Large Intestine, Via Natural or Artificial Opening Endoscopic (ICD-10-PCS; principal; 2021-08-30)
DX: T81.49XA Infection following a procedure, other surgical site, initial encounter (principal); K56.7 Ileus, unspecified; K63.3 Ulcer of intestine; Z20.822 Contact with and (suspected) exposure to COVID-19; I10 Essential (primary) hypertension; K59.81 Ogilvie syndrome; E86.0 Dehydration; Y83.8 Other surgical procedures as the cause of abnormal reaction of the patient, or of later complication, without mention of misadventure at the time of the procedure; Z90.89 Acquired absence of other organs
CPT/HCPCS: 36415; 74018; 74022; 74177; 80048; 80053; 85025; J1650; J2543; J2704; J3480; J3490; J7120; Q0169; U0003; U0005

== ENCOUNTER 2022-01-31 11:02 | Inpatient (IN) | payer MEDICARE ==
[2022-01-31 11:29] LABS: #Eosinphils 0.1 thou/uL (0.0-0.7); #Monocytes 0.7 thou/uL (0.11-0.59); #Neutrophils 4.2 thou/uL (1.40-6.50); %Basophils 0.6 % (0.0-1.0); %Lymphocytes 28.4 % (21.0-51.0); %Monocytes 9.4 % (0.0-10.0); %Neutrophils 59.6 % (42.0-75.0); Hemoglobin 15.6 g/dL (14.0-18.0); Mean Corpuscular HGB CONC 33.5 g/dL (32.0-36.0); Mean Corpuscular Hemoglobin 31.6 pg (27.0-31.0); Mean Corpuscular Volume 94.4 fL (78.0-98.0); Mean Platelet Volume 7.8 fL (7.4-10.4); Platelet Count 230 thou/uL (130-400); RBC Distribution Width 12.4 % (11.5-14.5); Red Blood Cell (RBC) Count 4.94 mill/uL (4.70-6.10)
[2022-01-31 11:41] LABS: INR-International Normal Ratio 1.1; PTT 35.5 sec (22.9-36.1); Prothrombin Time 13.8 sec (12.0-14.7)
[2022-01-31 11:50] LABS: ALT (SGPT) 13 U/L (8-55); AST (SGOT) 14 U/L (5-34); Albumin 4.6 g/dL (3.4-4.8); Alkaline Phosphatase 93 U/L (40-110); Anion Gap 12 mmol/L (10-20); BUN (Urea Nitrogen) 15 mg/dL (8.4-25.7); Bilirubin, Total 0.6 mg/dL (0.2-1.2); Calc. Creatinine Clearance 0 mL/min (70-130); Calcium 9.7 mg/dL (7.8-10.44); Carbon Dioxide 25 mmol/L (23-31); Chloride 107 mmol/L (98-107); Globulin 2.5 g/dL (2.4-3.5); Glucose 99 mg/dL (83-110); Potassium 3.5 mmol/L (3.5-5.1); Protein, Total 7.1 g/dL (5.8-8.1); Sodium 140 mmol/L (136-145)
[2022-01-31] MEDS ORDERED: Aspirin Chewable 81 MG TAB ONE (14:07)
[2022-01-31 17:10] VITALS: BMI 37.9
[2022-01-31] MEDS: Atorvastatin Calcium 40 MG TAB PO SCH (20:13)
[2022-01-31] MEDS: Fish Oil 1,000 MG CAP PO SCH (20:13)
[2022-02-01 00:51] LABS: SARS-CoV-2 PCR by NAA Not Detected (NotDetected)
[2022-02-01 05:22] LABS: #Basophils 0.1 thou/uL (0.0-0.2); #Eosinphils 0.1 thou/uL (0.0-0.7); #Lymphocytes 1.7 thou/uL (1.20-3.40); #Monocytes 0.5 thou/uL (0.11-0.59); #Neutrophils 3.9 thou/uL (1.40-6.50); %Basophils 0.9 % (0.0-1.0); %Eosinophils 1.7 % (0.0-10.0); %Lymphocytes 27.7 % (21.0-51.0); %Monocytes 7.9 % (0.0-10.0); %Neutrophils 61.9 % (42.0-75.0); Hemoglobin 15.1 g/dL (14.0-18.0); Mean Corpuscular HGB CONC 34.8 g/dL (32.0-36.0); Mean Corpuscular Hemoglobin 32.9 pg (27.0-31.0); Mean Corpuscular Volume 94.6 fL (78.0-98.0); Mean Platelet Volume 8.4 fL (7.4-10.4); Platelet Count 231 thou/uL (130-400); Red Blood Cell (RBC) Count 4.59 mill/uL (4.70-6.10); White Blood Cell (WBC) Count 6.3 thou/uL (4.8-10.8)
[2022-02-01 05:30] LABS: Hemoglobin A1c 5.3 % (4.0-6.0)
[2022-02-01 05:45] LABS: Anion Gap 10 mmol/L (10-20); BUN (Urea Nitrogen) 15 mg/dL (8.4-25.7); Calc. Creatinine Clearance 132 mL/min (70-130); Calcium 9.6 mg/dL (7.8-10.44); Carbon Dioxide 27 mmol/L (23-31); Chloride 106 mmol/L (98-107); Cholesterol 99 mg/dl (< 200 Desired); Glucose 93 mg/dL (83-110); HDL Cholesterol 33 mg/dL (>60 Neg Risk); LDL Cholesterol, Calculated 47 mg/dL; Potassium 3.6 mmol/L (3.5-5.1); Sodium 139 mmol/L (136-145); Triglycerides 94 mg/dL (Less than 150)
[2022-02-01] MEDS: Aspirin 81 mg Enteric Coated Tablet PO SCH (08:27)
[2022-02-01] MEDS ORDERED: Enoxaparin Sodium 40 MG/0.4 ML SYRINGE SC SCH (09:00)
[2022-02-01] MEDS ORDERED: Losartan 25 MG TAB PO SCH (10:30)
[2022-02-01] MEDS: Atorvastatin Calcium 40 MG TAB PO SCH (20:25)
[2022-02-01] MEDS: Fish Oil 1,000 MG CAP PO SCH (20:25)
[2022-02-01] MEDS: Apixaban 5 MG TAB PO SCH (20:26)
[2022-02-02] MEDS: Aspirin 81 mg Enteric Coated Tablet PO SCH (08:38)
[2022-02-02] MEDS: Apixaban 5 MG TAB PO SCH (08:38)
[2022-02-02] MEDS ORDERED: Losartan 25 MG TAB PO SCH (09:00)
[2022-02-02 11:51] VITALS: BP 137/76; TEMP 96.9
== END 2022-02-02 13:45 | disposition home or self-care (01) | DRG 69 ==
LOC: ERS 11:02 → ERHOLD 12:47 → NEURO 16:43 → OBSVTOIN 02-01 12:38
PROVIDERS: ADMIT Emergency Medicine; ATTEND Emergency Medicine
DX: G45.9 Transient cerebral ischemic attack, unspecified (principal); I47.1 Supraventricular tachycardia; Z68.41 Body mass index [BMI] 40.0-44.9, adult; I49.5 Sick sinus syndrome; Z20.822 Contact with and (suspected) exposure to COVID-19; E78.5 Hyperlipidemia, unspecified; G47.33 Obstructive sleep apnea (adult) (pediatric); E66.01 Morbid (severe) obesity due to excess calories; Z79.899 Other long term (current) drug therapy; Z90.49 Acquired absence of other specified parts of digestive tract; Z86.73 Personal history of transient ischemic attack (TIA), and cerebral infarction without residual deficits
CPT/HCPCS: 36415; 36416; 70450; 70551; 80048; 80053; 80061; 83036; 84484; 85025; 85610; 85730; 93005; 93306; 93880; 94660; J1650; U0003; U0005

== ENCOUNTER 2022-03-08 10:47 | Outpatient (CLI) | payer MEDICARE ==
[2022-03-08 11:18] LABS: Estimated GFR-MDRD - POC Greater than 90
== END 2022-03-08 10:48 | disposition home or self-care (01) ==
LOC: BICCT 10:47
PROVIDERS: ATTEND Surgery
DX: K43.2 Incisional hernia without obstruction or gangrene (principal); K63.89 Other specified diseases of intestine
CPT/HCPCS: 74177; 82565

== ENCOUNTER 2022-03-08 15:35 | Emergency (ER) | payer MEDICARE ==
[2022-03-08 16:23] LABS: #Basophils 0.1 thou/uL (0.0-0.2); #Eosinphils 0.1 thou/uL (0.0-0.7); #Lymphocytes 2.1 thou/uL (1.20-3.40); #Monocytes 0.7 thou/uL (0.11-0.59); #Neutrophils 4.5 thou/uL (1.40-6.50); %Basophils 0.7 % (0.0-1.0); %Eosinophils 1.7 % (0.0-10.0); %Lymphocytes 27.5 % (21.0-51.0); %Monocytes 9.4 % (0.0-10.0); %Neutrophils 60.8 % (42.0-75.0); Hemoglobin 15.1 g/dL (14.0-18.0); Mean Corpuscular HGB CONC 32.5 g/dL (32.0-36.0); Mean Corpuscular Hemoglobin 31.1 pg (27.0-31.0); Mean Corpuscular Volume 95.7 fL (78.0-98.0); Mean Platelet Volume 6.9 fL (7.4-10.4); Platelet Count 307 thou/uL (130-400); RBC Distribution Width 12.8 % (11.5-14.5); Red Blood Cell (RBC) Count 4.84 mill/uL (4.70-6.10); White Blood Cell (WBC) Count 7.5 thou/uL (4.8-10.8)
[2022-03-08 16:44] LABS: ALT (SGPT) 15 U/L (8-55); AST (SGOT) 12 U/L (5-34); Albumin 4.3 g/dL (3.4-4.8); Alkaline Phosphatase 85 U/L (40-110); Anion Gap 12 mmol/L (10-20); BUN (Urea Nitrogen) 13 mg/dL (8.4-25.7); Bilirubin, Total 0.7 mg/dL (0.2-1.2); Calc. Creatinine Clearance 0 mL/min (70-130); Calcium 9.9 mg/dL (7.8-10.44); Carbon Dioxide 28 mmol/L (23-31); Chloride 103 mmol/L (98-107); Glucose 82 mg/dL (83-110); Lipase 22 U/L (8-78); Potassium 4.3 mmol/L (3.5-5.1); Protein, Total 7.3 g/dL (5.8-8.1); Sodium 139 mmol/L (136-145)
== END 2022-03-08 18:15 | disposition home or self-care (01) ==
LOC: ERS 15:35
DX: K63.89 Other specified diseases of intestine (principal); I10 Essential (primary) hypertension; E78.00 Pure hypercholesterolemia, unspecified; I48.91 Unspecified atrial fibrillation; Z79.899 Other long term (current) drug therapy; Z79.01 Long term (current) use of anticoagulants
CPT/HCPCS: 36415; 74177; 80053; 82565; 83690; 85025; 99284

== ENCOUNTER 2024-10-28 13:00 | Inpatient (IN) | payer MEDICARE ==
[2024-10-28 13:05] VITALS: BMI 39.0
[2024-11-03] MEDS ORDERED: Iopamidol 370 76% 100 ML VIAL ONE (10:16)
[2024-11-03] MEDS ORDERED: CEFAZOLIN 2 GM, CEFAZOLIN 1 GM in Sodium Chloride 0.9% 100 ML IVPB SCH (13:00)
[2024-11-03] MEDS ORDERED: Heparin 10,000 UNITS/ 10 ML VIAL ONE (13:10)
[2024-11-03] MEDS ORDERED: CEFAZOLIN 2 GM VIAL ONE (13:10)
[2024-11-03] MEDS ORDERED: Protamine Sulfate 50 MG/5 ML VIAL ONE (13:10)
[2024-11-03] MEDS ORDERED: CEFAZOLIN 1 GM VIAL ONE (13:45)
[2024-11-03] MEDS ORDERED: fentaNYL 50 mcg/mL 1 mL Vial ONE ×2 (14:02→14:30)
[2024-11-03] MEDS ORDERED: Rocuronium Bromide 50 MG/5 ML VIAL ONE (14:03)
[2024-11-03] MEDS ORDERED: PROPOFOL 200 MG/20 ML VIAL ONE (14:14)
[2024-11-03] MEDS ORDERED: Esmolol 100 MG/10 ML VIAL ONE (14:14)
[2024-11-03] MEDS ORDERED: SUGAMMADEX SODIUM 200 MG/2 ML VIAL ONE ×2 (15:16→15:17)
[2024-11-03] MEDS ORDERED: Ondansetron PF 4 MG/2 ML Vial ONE (15:22)
== END 2024-11-03 18:32 | disposition home or self-care (01) | DRG 274 ==
LOC: SURG A 11-03 10:22
PROVIDERS: ADMIT Internal Medicine Cardiovascular Disease; ATTEND Internal Medicine Cardiovascular Disease
PROC: 02L73DK Occlusion of Left Atrial Appendage with Intraluminal Device, Percutaneous Approach (ICD-10-PCS; principal; 2024-11-03)
PROC: B24BZZ4 Ultrasonography of Heart with Aorta, Transesophageal (ICD-10-PCS; 2024-11-03)
DX: I48.0 Paroxysmal atrial fibrillation (principal); Z00.6 Encounter for examination for normal comparison and control in clinical research program; G45.9 Transient cerebral ischemic attack, unspecified; Z79.01 Long term (current) use of anticoagulants; I10 Essential (primary) hypertension; E78.5 Hyperlipidemia, unspecified; G47.33 Obstructive sleep apnea (adult) (pediatric); E66.01 Morbid (severe) obesity due to excess calories; Z68.39 Body mass index [BMI] 39.0-39.9, adult
CPT/HCPCS: 33340; 85347; 86850; 86900; 86901; 93306; 93312; C1759; C1760; C1889; C1894; J0690; J1644; J2405; J2704; J2720; J3010; Q9967

== ENCOUNTER 2025-04-29 05:44 | Day surgery (SDC) | payer MEDICARE ==
[2025-04-28 09:42] VITALS: BMI 38.3
[2025-04-29] MEDS ORDERED: PROPOFOL 20 ML ONE (07:16)
[2025-04-29] MEDS ORDERED: PHENYLEPHRINE-NS 100 MCG/ML 10 ML SYRINGE ONE (07:16)
[2025-04-29] MEDS ORDERED: GLYCOPYRROLATE/PF 0.2 MG/ML VIAL ONE (07:16)
[2025-04-29] MEDS ORDERED: Lidocaine 1% (PF) 30 ML VIAL ONE (07:16)
== END 2025-04-29 09:15 | disposition home or self-care (01) ==
LOC: SDC 05:44
PROVIDERS: ATTEND Internal Medicine Cardiovascular Disease
PROC: B24BZZ4 Ultrasonography of Heart with Aorta, Transesophageal (ICD-10-PCS; principal; 2025-04-29)
DX: I48.0 Paroxysmal atrial fibrillation (principal); I08.1 Rheumatic disorders of both mitral and tricuspid valves; Z86.73 Personal history of transient ischemic attack (TIA), and cerebral infarction without residual deficits; Z95.818 Presence of other cardiac implants and grafts; Z79.01 Long term (current) use of anticoagulants
CPT/HCPCS: 93312; J2704; J3490